=== PATIENT | female | born 1985 | race Caucasian/White ===

== ENCOUNTER 2019-04-18 09:54 | Outpatient (CLI) | payer MEDICAID, SELFPAY ==
--- NOTE | 2019-04-18 11:28 | US_ITS ---
WS: [id number] ULTRASOUND BREAST RIGHT TECHNIQUE: Ultrasound right breast focused area of concern. CLINICAL INFORMATION: LUMP IN RIGHT BREAST COMPARISON: None. FINDINGS: Ultrasound right breast at the 2 to 3:00 position 6 cm from the nipple in the area of concern. Normal underlying breast tissue. No cystic or solid mass. No lesions to target for biopsy. US/US breast RT limited* [id number] IMPRESSION: BI-RADS 2 benign FOLLOW UP: Annual screening mammography age 40 Additional management of the palpable abnormality should be based on clinical g rounds.
== END 2019-04-18 09:55 | disposition home or self-care (01) ==
LOC: RAD 10:01
PROVIDERS: Family Provider Nurse Practitioner Family; Visit Provider Obstetrics & Gynecology
DX: N63.15 Unspecified lump in the right breast, overlapping quadrants (principal)
CPT/HCPCS: 76642

== ENCOUNTER → 2019-05-10 10:44 | Outpatient (BNVA) | payer MEDICAID, SELFPAY | PROVIDERS: Family Provider Nurse Practitioner Family; PCP Family Medicine; Visit Provider Counselor Professional | DX: F60.3 Borderline personality disorder (principal); F10.20 Alcohol dependence, uncomplicated; F33.1 Major depressive disorder, recurrent, moderate | CPT/HCPCS: 90834 ==

== ENCOUNTER → 2019-06-07 10:07 | Outpatient (BNVA) | payer MEDICAID, SELFPAY | PROVIDERS: Family Provider Nurse Practitioner Family; PCP Family Medicine; Visit Provider Counselor Professional | DX: F60.3 Borderline personality disorder (principal) | CPT/HCPCS: 90832 ==

== ENCOUNTER → 2019-06-21 10:18 | Outpatient (BNVA) | payer MEDICAID, SELFPAY | PROVIDERS: Family Provider Nurse Practitioner Family; PCP Family Medicine; Visit Provider Counselor Professional | DX: F60.3 Borderline personality disorder (principal) | CPT/HCPCS: 90834 ==

== ENCOUNTER → 2019-07-07 08:29 | Outpatient (BNVA) | payer MEDICAID, SELFPAY | PROVIDERS: Family Provider Nurse Practitioner Family; PCP Family Medicine; Visit Provider Psychiatry & Neurology Psychiatry | DX: F33.41 Major depressive disorder, recurrent, in partial remission (principal); F06.30 Mood disorder due to known physiological condition, unspecified; E55.9 Vitamin D deficiency, unspecified; E66.9 Obesity, unspecified; F51.05 Insomnia due to other mental disorder; Z86.59 Personal history of other mental and behavioral disorders; E53.9 Vitamin B deficiency, unspecified; E53.8 Deficiency of other specified B group vitamins; E60 Dietary zinc deficiency; E63.0 Essential fatty acid [EFA] deficiency | CPT/HCPCS: 99205 ==

== ENCOUNTER → 2019-07-12 08:03 | Outpatient (BNVA) | payer MEDICAID, SELFPAY | PROVIDERS: Family Provider Nurse Practitioner Family; PCP Family Medicine; Visit Provider Counselor Professional | DX: F60.3 Borderline personality disorder (principal) | CPT/HCPCS: 90834 ==

== ENCOUNTER → 2019-08-31 08:14 | Outpatient (BNVA) | payer MEDICAID, SELFPAY | PROVIDERS: Family Provider Nurse Practitioner Family; Visit Provider Counselor Professional | DX: F60.3 Borderline personality disorder (principal); F15.20 Other stimulant dependence, uncomplicated; F10.20 Alcohol dependence, uncomplicated; F12.20 Cannabis dependence, uncomplicated; Z70.8 Other sex counseling | CPT/HCPCS: 90834 ==

== ENCOUNTER → 2019-09-06 07:53 | Outpatient (BNVA) | payer MEDICAID, SELFPAY | PROVIDERS: Family Provider Nurse Practitioner Family; Visit Provider Counselor Professional | DX: F60.3 Borderline personality disorder (principal); F15.20 Other stimulant dependence, uncomplicated | CPT/HCPCS: 90834 ==

== ENCOUNTER → 2019-12-19 14:21 | Outpatient (BNVA) | payer MEDICAID, SELFPAY | PROVIDERS: Family Provider Nurse Practitioner Family; Visit Provider Psychiatry & Neurology Psychiatry | DX: F33.41 Major depressive disorder, recurrent, in partial remission (principal); F15.10 Other stimulant abuse, uncomplicated; Z65.3 Problems related to other legal circumstances | CPT/HCPCS: 99214 ==

== ENCOUNTER → 2020-01-19 12:57 | Outpatient (BNVA) | payer MEDICAID, SELFPAY | PROVIDERS: Family Provider Nurse Practitioner Family; Visit Provider Psychiatry & Neurology Psychiatry | DX: F33.41 Major depressive disorder, recurrent, in partial remission (principal); F15.10 Other stimulant abuse, uncomplicated; Z65.3 Problems related to other legal circumstances | CPT/HCPCS: 99214 ==

== ENCOUNTER → 2020-05-22 15:01 | Outpatient (BNVA) | payer MEDICAID, SELFPAY | PROVIDERS: Family Provider Nurse Practitioner Family; PCP Physician Assistant; Visit Provider Specialist | DX: G56.03 Carpal tunnel syndrome, bilateral upper limbs (principal); R20.0 Anesthesia of skin; R20.2 Paresthesia of skin; F17.210 Nicotine dependence, cigarettes, uncomplicated | CPT/HCPCS: 95910 ==

== ENCOUNTER 2021-04-07 08:37 | Emergency (ER) | payer MEDICAID, SELFPAY ==
--- NOTE | 2021-04-07 09:07 | W.ED.ABDPA2 ---
Documented by User: KENNEDI Carreon 04/07/21 09:08 HPI - Abdominal Pain General: Chief Complaint: Nausea/Vomiting/Diarrhea Stated Complaint: FEVER, N/V Time Seen by Provider: 04/07/21 09:47 History of Present Illness: HPI narrative: Patient states she has had abdominal pain for last couple days and now is becoming unbearable. She says he hurts in the low back both kidney areas patient says she is not urinating well. Said she has had some nausea and vomiting. She said pain radiates out across her abdomen. States she felt like she is been have a. Again with pressure but she has had a complete hysterectomy. Patient denies vaginal discharge. [facility] ED PFSH: Medical History (Updated 04/07/21 @ 12:24 by Toan Zuniga DO) Alcohol use disorder History of persistent depressive disorder Insomnia disorder, with non-sleep disorder mental comorbidity, recurrent Lost custody of children MDD (major depressive disorder), recurrent, in partial remission Methamphetamine use disorder, mild Obesity (BMI 30-39.9) Psychiatric care Surgical History (Updated 04/07/21 @ 13:31 by Toan Zuniga DO) History of hysterectomy Hx of cholecystectomy Social History Smoking and tobacco status: current some day smoker Course Vital Signs: Vital signs: Vital Signs Temperature 98.4 F 04/07/21 09:23 Pulse Rate 103 H 04/07/21 12:29 Respiratory Rate 24 H 04/07/21 12:29 Blood Pressure 146/90 04/07/21 12:29 Pulse Oximetry 98 04/07/21 12:29 MDM - Abdominal Pain Lab Data: Labs: Lab Results 04/07/21 04/07/21 04/07/21 09:45 10:10 10:10 WBC Cancelled Corrected WBC Cancelled RBC Cancelled Hgb Cancelled Hct Cancelled MCV Cancelled MCH Cancelled MCHC Cancelled RDW Cancelled Plt Count Cancelled MPV Cancelled Gran % Cancelled Neut % (Auto) Cancelled Lymph % (Auto) Cancelled [place] % (Auto) Cancelled Eos % (Auto) Cancelled Baso % (Auto) Cancelled Neut # (Auto) Cancelled Lymph # (Auto) Cancelled [place] # (Auto) Cancelled Eos # (Auto) Cancelled Baso # (Auto) Cancelled Absolute Gran (aut o) Cancelled Nucleated RBC % (a uto) Cancelled Nucleated RBCs # Cancelled Sodium 135 mmol/L L mmol /L (136-145) Potassium 4.0 mmol/L mmol/L (3.5-5.1) Chloride 101 mmol/L mmol/L (98-107) Carbon Dioxide 14 mmol/L L mmol/ L (22-29) Anion Gap 24.0 H (5-19) BUN 8 mg/dL mg/dL (6-20) Creatinine 0.5 mg/dL mg/dL (0.5-0.9) GFR Calculation 140.4 mL/min H mL /min (90-130) Glucose 179 mg/dL H mg/dL (65-115) Calculated Osmolal ity 283 mOsm/kg L mOs m/kg (285-295) Calcium 9.3 mg/dL mg/dL (8.5-10.5) Total Bilirubin 2.3 mg/dL H mg/dL (0.15-1.2) AST 21 U/L U/L (0-32) ALT 20 U/L U/L (0-33) Alkaline Phosphata se 79 IU/L IU/L (35-105) Total Protein 7.5 g/dL g/dL (6.6-8.7) Albumin 4.1 g/dL g/dL (3.5-5.2) Globulin 3.4 g/dL g/dL (1.3-4.6) Lipase 11 U/L L U/L (13-60) Urine Color Shirley (Yellow) Urine Appearance Clear (CLEAR) Urine pH 6 (5-7) Ur Specific Gravit y 1.020 (1.005-1.030) Urine Protein 1+ H (Negative) Urine Glucose (UA) 4+ H (Normal) Urine Ketones 3+ H (Negative) Urine Blood 2+ H (Negative) Urine Nitrate Negative (Negative) Urine Bilirubin 1+ H (Negative) Urine Urobilinogen 1 mg/dL H mg/dL (Negative) Ur Leukocyte Joyce ase Trace H (Negative) Urine RBC 0-4 /hpf H /hpf (0-2) Urine WBC 0-4 /hpf H /hpf (0-5) Ur Squamous Epith Cells 5-10 /hpf H /hpf (0-5) Amorphous Sediment Not Reportable Urine Bacteria 1+ /hpf H /hpf (NONE) Urine Mucus 2+ /hpf /hpf 04/07/21 10:51 WBC 13.8 10^3/uL H 10 ^3/uL (4.0-10.0) Corrected WBC RBC 4.87 10^6/uL 10^6 /uL (4.1-5.3) Hgb 13.8 g/dL g/dL (11.5-15.3) Hct 42.0 % % (37.0-47.0) MCV 86.2 fl fl (81-99) MCH 28.3 pg pg (28.0-34.0) MCHC 32.9 g/dL g/dL (30.0-36.0) RDW 13.2 % % (12.1-15.1) Plt Count 203 10^3/cmm 10^3 /cmm (130-400) MPV 10.5 fL H fL (7.4-10.4) Gran % Neut % (Auto) 90.9 % % Lymph % (Auto) 4.8 % % [place] % (Auto) 3.6 % % Eos % (Auto) 0.0 % % Baso % (Auto) 0.1 % % Neut # (Auto) 12.54 10^3/uL H 1 0^3/uL (1.8-7.7) Lymph # (Auto) 0.7 10^3/uL L 10^ 3/uL (0.8-4.8) [place] # (Auto) 0.5 10^3/uL 10^3/ uL (0.2-0.9) Eos # (Auto) 0.0 10^3/uL 10^3/ uL (0.0-0.8) Baso # (Auto) 0.0 10^3/uL 10^3/ uL (0.0-0.1) Absolute Gran (aut o) Nucleated RBC % (a uto) 0 % % Nucleated RBCs # 0.0 /100WBC /100W BC Sodium Potassium Chloride Carbon Dioxide Anion Gap BUN Creatinine GFR Calculation Glucose Calculated Osmolal ity Calcium Total Bilirubin AST ALT Alkaline Phosphata se Total Protein Albumin Globulin Lipase Urine Color Urine Appearance Urine pH Ur Specific Gravit y Urine Protein Urine Glucose (UA) Urine Ketones Urine Blood Urine Nitrate Urine Bilirubin Urine Urobilinogen Ur Leukocyte Joyce ase Urine RBC Urine WBC Ur Squamous Epith Cells Amorphous Sediment Urine Bacteria Urine Mucus Discharge Plan Discharge Patient Disposition: Home Clinical Impression: Diverticulitis, Gilbert's disease Condition: Stable Prescriptions: New Cipro 500 mg tablet 500 mg PO BID Qty: 14 RF: 0 Flagyl 500 mg tablet 500 mg PO BID 7 Days Qty: 14 RF: 0 hydrocodone-acetaminophen 5-325 mg tablet 1 tab PO Q6H PRN (Reason: pain) Qty: 15 RF: 0 Zofran 4 mg tablet 4 mg PO Q6H PRN (Reason: nausea and vomiting) Qty: 20 RF: 0 No Action Excedrin Migraine 250-250-65 mg tablet 2 tab PO Q6H PRNRF: 0 naproxen 500 mg tablet 500 mg PO BID PRNRF: 0 levomefolate-algal oil [L-Methylfolate Forte] 15-90.314 mg capsule 1 cap PO DAILY Qty: 30 RF: 1 ergocalciferol (vitamin D2) [Drisdol] 1,250 mcg (50,000 unit) capsule 1,250 mcg PO DAILY Qty: 30 RF: 0 ergocalciferol (vitamin D2) [Drisdol] 1,250 mcg (50,000 unit) capsule 1,250 mcg PO .biweekly Qty: 10 RF: 1 bupropion HCl 150 mg tablet extended release 24 hr 150 mg PO QAM 30 Days Qty: 30 RF: 3 Discharge Orders: Discharge ED (Routine); Ordered 04/07/21 Ordered By: Toan Zuniga Referrals: Ronda Sparks PA [Primary Care Provider] - Discharge Diet: Clear Liquid Discharge Activity: Resume usual activity Patient Instructions: Diverticulitis (ED), Opioid Safety Activity Restrictions/Additional Instructions: Follow-up with your primary care doctor if not improving within the next week. Stand Alone Forms: Work/School Release Coding Level of Care Code ED Production Planning Manager for Chg Fwd Exam Comprehensive Documented by User: Toan Zuniga DO 04/07/21 13:31 HPI - Abdominal Pain General: Chief Complaint: Nausea/Vomiting/Diarrhea Stated Complaint: FEVER, N/V Time Seen by Provider: 04/07/21 09:47 History of Present Illness: HPI narrative: 35-year-old female who presents emergency room complaining of flulike symptoms for the last 3 days. Generalized myalgias with a lot of nausea and vomiting abdominal cramping states she feels like it is menstrual cramping. She did have a hysterectomy several years ago due to metromenorrhagia in the same setting she states that she had a cholecystectomy. MD elicited complaint: abdominal pain Onset (ago): day(s) (3) Pain Consistency: constant Location: Pelvis Severity: moderate Quality: cramping Radiation: none Migration to: no migration Exacerbating factors: movement and other (Exam) Relieving factors: rest Associated Symptoms: Denies anorexia, belching, bloating, change in bowel habits, change in stool character, chills, coffee ground emesis, constipation, GI cramping, diarrhea, dyspepsia, dysuria, excessive flatus, fever(s), heartburn, hematochezia, hematuria, hematemesis, fecal incontinence, loose stools, melena, nausea, poor appetite, syncope and vomiting Review of Systems Const: Denies: fever(s) or chills ENMT: Denies: throat pain, ear or mastoid pain, nasal discharge or nasal congestion Card: Denies: syncope Resp: Denies: dyspnea, productive cough or non-productive cough GI: Denies: nausea, vomiting, hematemesis, coffee ground emesis, heartburn, diarrhea, constipation, bloating, GI cramping, belching, excessive flatus, fecal incontinence, change in bowel habits, change in stool character, hematochezia or melena : Denies: dysuria or hematuria Skin/Breast: Denies: rash or pruritus PFSH ED PFSH: Medical History (Updated 04/07/21 @ 12:24 by Toan Zuniga DO) Alcohol use disorder History of persistent depressive disorder Insomnia disorder, with non-sleep disorder mental comorbidity, recurrent Lost custody of children MDD (major depressive disorder), recurrent, in partial remission Methamphetamine use disorder, mild Obesity (BMI 30-39.9) Psychiatric care Surgical History (Updated 04/07/21 @ 13:31 by Toan Zuniga DO) History of hysterectomy Hx of cholecystectomy Social History Smoking and tobacco status: current some day smoker Physical Exam Const: COMMON NORMALS: no acute distress GENERAL APPEARANCE: cooperative and comfortable ORIENTATION/CONSCIOUSNESS: Yes awake, Yes oriented to person, Yes oriented to place and Yes oriented to time HENMT: COMMON NORMALS: normocephalic, atraumatic and hearing grossly normal bilaterally HEAD & SCALP: normocephalic and atraumatic Neck/C-Spine: COMMON NORMALS: no JVD Resp: COMMON NORMALS: normal respiratory effort, No retractions, No use of accessory muscles and clear to auscultation bilaterally AUSCULTATION: clear to auscultation bilaterally Cardio: COMMON NORMALS: no JVD, regular rate, regular rhythm and No murmurs present (Cardio) RATE: regular rate RHYTHM: regular rhythm GI: AUSCULTATION: Yes Hypoactive bowel sounds present PALPATION: Yes Tenderness to palpation present (GI) (Diffuse) and No Guarding due to palpation present (GI) Extremity: COMMON NORMALS: normal to inspection, capillary refill normal, no clubbing, cyanosis or edema, no calf tenderness and no pedal edema Neuro: SENSORIUM/ORIENTATION: Yes oriented to person, Yes oriented to place and Yes oriented to time Skin: COMMON NORMALS: no rashes or lesions noted GENERAL SKIN EXAM: no rashes or lesions noted Course Vital Signs: Vital signs: Vital Signs Temperature 98.4 F 04/07/21 09:23 Pulse Rate 103 H 04/07/21 12:29 Respiratory Rate 24 H 04/07/21 12:29 Blood Pressure 146/90 04/07/21 12:29 Pulse Oximetry 98 04/07/21 12:29 MDM - Abdominal Pain MDM Narrative: Medical decision making narrative: CT and labs reviewed. Patient has acute diverticulitis colitis. Discussed with the radiologist does not appear to be acute appendicitis. Patient will be started on Cipro and Flagyl hydrocodone and Zofran as needed clear liquid diet for 24 to 48 hours and advance as tolerated follow-up with primary care return if not improving. Also a secondary note patient's T bili is elevated at 2.3 with normal liver enzymes suspect she has an underlying Guilbert disease she previously has had a cholecystectomy. Lab Data: Labs: Lab Results 04/07/21 04/07/21 04/07/21 09:45 10:10 10:10 WBC Cancelled Corrected WBC Cancelled RBC Cancelled Hgb Cancelled Hct Cancelled MCV Cancelled MCH Cancelled MCHC Cancelled RDW Cancelled Plt Count Cancelled MPV Cancelled Gran % Cancelled Neut % (Auto) Cancelled Lymph % (Auto) Cancelled [place] % (Auto) Cancelled Eos % (Auto) Cancelled Baso % (Auto) Cancelled Neut # (Auto) Cancelled Lymph # (Auto) Cancelled [place] # (Auto) Cancelled Eos # (Auto) Cancelled Baso # (Auto) Cancelled Absolute Gran (aut o) Cancelled Nucleated RBC % (a uto) Cancelled Nucleated RBCs # Cancelled Sodium 135 mmol/L L mmol /L (136-145) Potassium 4.0 mmol/L mmol/L (3.5-5.1) Chloride 101 mmol/L mmol/L (98-107) Carbon Dioxide 14 mmol/L L mmol/ L (22-29) Anion Gap 24.0 H (5-19) BUN 8 mg/dL mg/dL (6-20) Creatinine 0.5 mg/dL mg/dL (0.5-0.9) GFR Calculation 140.4 mL/min H mL /min (90-130) Glucose 179 mg/dL H mg/dL (65-115) Calculated Osmolal ity 283 mOsm/kg L mOs m/kg (285-295) Calcium 9.3 mg/dL mg/dL (8.5-10.5) Total Bilirubin 2.3 mg/dL H mg/dL (0.15-1.2) AST 21 U/L U/L (0-32) ALT 20 U/L U/L (0-33) Alkaline Phosphata se 79 IU/L IU/L (35-105) Total Protein 7.5 g/dL g/dL (6.6-8.7) Albumin 4.1 g/dL g/dL (3.5-5.2) Globulin 3.4 g/dL g/dL (1.3-4.6) Lipase 11 U/L L U/L (13-60) Urine Color Shirley (Yellow) Urine Appearance Clear (CLEAR) Urine pH 6 (5-7) Ur Specific Gravit y 1.020 (1.005-1.030) Urine Protein 1+ H (Negative) Urine Glucose (UA) 4+ H (Normal) Urine Ketones 3+ H (Negative) Urine Blood 2+ H (Negative) Urine Nitrate Negative (Negative) Urine Bilirubin 1+ H (Negative) Urine Urobilinogen 1 mg/dL H mg/dL (Negative) Ur Leukocyte Joyce ase Trace H (Negative) Urine RBC 0-4 /hpf H /hpf (0-2) Urine WBC 0-4 /hpf H /hpf (0-5) Ur Squamous Epith Cells 5-10 /hpf H /hpf (0-5) Amorphous Sediment Not Reportable Urine Bacteria 1+ /hpf H /hpf (NONE) Urine Mucus 2+ /hpf /hpf 04/07/21 10:51 WBC 13.8 10^3/uL H 10 ^3/uL (4.0-10.0) Corrected WBC RBC 4.87 10^6/uL 10^6 /uL (4.1-5.3) Hgb 13.8 g/dL g/dL (11.5-15.3) Hct 42.0 % % (37.0-47.0) MCV 86.2 fl fl (81-99) MCH 28.3 pg pg (28.0-34.0) MCHC 32.9 g/dL g/dL (30.0-36.0) RDW 13.2 % % (12.1-15.1) Plt Count 203 10^3/cmm 10^3 /cmm (130-400) MPV 10.5 fL H fL (7.4-10.4) Gran % Neut % (Auto) 90.9 % % Lymph % (Auto) 4.8 % % [place] % (Auto) 3.6 % % Eos % (Auto) 0.0 % % Baso % (Auto) 0.1 % % Neut # (Auto) 12.54 10^3/uL H 1 0^3/uL (1.8-7.7) Lymph # (Auto) 0.7 10^3/uL L 10^ 3/uL (0.8-4.8) [place] # (Auto) 0.5 10^3/uL 10^3/ uL (0.2-0.9) Eos # (Auto) 0.0 10^3/uL 10^3/ uL (0.0-0.8) Baso # (Auto) 0.0 10^3/uL 10^3/ uL (0.0-0.1) Absolute Gran (aut o) Nucleated RBC % (a uto) 0 % % Nucleated RBCs # 0.0 /100WBC /100W BC Sodium Potassium Chloride Carbon Dioxide Anion Gap BUN Creatinine GFR Calculation Glucose Calculated Osmolal ity Calcium Total Bilirubin AST ALT Alkaline Phosphata se Total Protein Albumin Globulin Lipase Urine Color Urine Appearance Urine pH Ur Specific Gravit y Urine Protein Urine Glucose (UA) Urine Ketones Urine Blood Urine Nitrate Urine Bilirubin Urine Urobilinogen Ur Leukocyte Joyce ase Urine RBC Urine WBC Ur Squamous Epith Cells Amorphous Sediment Urine Bacteria Urine Mucus Discharge Plan Discharge Patient Disposition: Home Clinical Impression: Diverticulitis, Gilbert's disease Condition: Stable Prescriptions: New Cipro 500 mg tablet 500 mg PO BID Qty: 14 RF: 0 Flagyl 500 mg tablet 500 mg PO BID 7 Days Qty: 14 RF: 0 hydrocodone-acetaminophen 5-325 mg tablet 1 tab PO Q6H PRN (Reason: pain) Qty: 15 RF: 0 Zofran 4 mg tablet 4 mg PO Q6H PRN (Reason: nausea and vomiting) Qty: 20 RF: 0 No Action Excedrin Migraine 250-250-65 mg tablet 2 tab PO Q6H PRNRF: 0 naproxen 500 mg tablet 500 mg PO BID PRNRF: 0 levomefolate-algal oil [L-Methylfolate Forte] 15-90.314 mg capsule 1 cap PO DAILY Qty: 30 RF: 1 ergocalciferol (vitamin D2) [Drisdol] 1,250 mcg (50,000 unit) capsule 1,250 mcg PO DAILY Qty: 30 RF: 0 ergocalciferol (vitamin D2) [Drisdol] 1,250 mcg (50,000 unit) capsule 1,250 mcg PO .biweekly Qty: 10 RF: 1 bupropion HCl 150 mg tablet extended release 24 hr 150 mg PO QAM 30 Days Qty: 30 RF: 3 Discharge Orders: Discharge ED (Routine); Ordered 04/07/21 Ordered By: Toan Zuniga Referrals: Ronda Sparks PA [Primary Care Provider] - Discharge Diet: Clear Liquid Discharge Activity: Resume usual activity Patient Instructions: Diverticulitis (ED), Opioid Safety Activity Restrictions/Additional Instructions: Follow-up with your primary care doctor if not improving within the next week. Stand Alone Forms: Work/School Release Coding Level of Care Code ED Production Planning Manager for Shahriar Fwd Exam Comprehensive
[2021-04-07 09:23] VITALS: BP 142/58; PULSE 100; RESP 18; TEMP 36.9; O2SAT 97; BMI 36.1
--- NOTE | 2021-04-07 09:55 | CT_ITS ---
WS: [id number] CT ABDOMEN AND PELVIS WITH CONTRAST HISTORY: Lower abdominal pain for 4 days, fever and vomiting. TECHNIQUE: Imaging performed of the abdomen and pelvis with IV contrast. Single phase imaging of the abdomen. Coronal and sagittal reformats are submitted. All CT scans at [facility] use at [address] one of these dose optimization techniques: automated exposure control; mA and/or kV adjustment per patient size (includes targeted exams where dose is matched to clinical indication); or iterative re construction. IV CONTRAST: Omnipaque 300; 95 mL IV. Oral contrast: No DLP: 1773.15 mGy.cm COMPARISON: None available. Lower thorax: Lung bases are clear. Heart is normal size. No hiatal hernia. Liver/biliary system: Normal size with no intrahepatic dilatation. Gallbladder: Status post cholecystectomy. Pancreas: Normal size pancreas and pancreatic duct. No adjacent inflammation. Spleen: Normal size spleen. No mass or infarct. Adrenal glands: Normal. Right kidney: Normal. Left kidney: Normal. Aorta: Normal. Lymphadenopathy: None. Free fluid: There is a small amount of complex free fluid in the pelvis. More fluid than physiologic. GI tract: The appendix is identified and extends across the midline of the pelvis. There are mild adj acent inflammatory changes which are secondary to acute diverticulitis involving the sigmoid colon. A ppendicolith within the distal appendix. There is a small amount of increased fluid in the cecum. Num erous diverticula are present throughout the colon. In the sigmoid colon there is marked wall thicken ing with numerous diverticula. Adjacent stranding in the fat with numerous diverticula. Abdominal wall: Unremarkable abdominal wall. No hernia. Pelvis: Free fluid in the pelvis is of increased density and there is some very mild scattered enhanc ement. Within the free fluid in the LEFT adnexa irregular shaped peripherally enhancing nodule. Simil ar findings to lesser extent in the RIGHT adnexa. Both of these peripherally enhancing nodules are cl osely associated with the ovaries. Bones: Unremarkable. CT/CT abdomen pelvis w con* [id number] IMPRESSION: 1. Moderate changes of acute sigmoid diverticulitis. Significant colonic wall thickening with edema. 2. Mildly complex free fluid in the pelvis. At this time there is no well form ed abscess. There are a few areas of mild peripheral enhancement within each ad nexa surrounded by fluid. Early developing abscess versus collapsing corpus lut eal cysts. 3. Mild periappendiceal inflammation secondary to the sigmoid diverticulitis. The appendix does extend across the midline and is closely associated with the inflammation from the acute sigmoid diverticulitis. 4. Prior cholecystectomy.
[2021-04-07 10:00] VITALS: RESP 18; O2SAT 99
[2021-04-07] MEDS: morphine 4 mg/mL SDV 1 mL IVP (10:00)
[2021-04-07] MEDS: ondansetron 2 mg/ML SDV 2 mL 4 MG IVP (10:01)
[2021-04-07] MEDS: sodium chloride 0.9% 1,000 ML 999 ML IV ×2 (10:01→11:47)
[2021-04-07] MEDS: iohexol 300 mg/mL 100 mL Btl IV (10:30)
[2021-04-07 10:37] LABS: Urine Appearance Clear (CLEAR); Urine Color Orange (Yellow); pH Urine 6 (5-7)
[2021-04-07 10:38] LABS: Add Urine Culture? No; Add Urine Microscopic? YES; Bacteria Urine 1+ /hpf; Bilirubin Urine 1+ (Negative); Blood Urine 2+ (Negative); Glucose Urine UA 4+ (Normal); Ketones Urine 3+ (Negative); Leukocyte Esterase Urine Trace (Negative); Mucus Urine 2+ /hpf; Nitrate Urine Negative (Negative); Protein Urine 1+ (Negative); RBC Urine 0-4 /hpf (0-2); Urobilinogen Urine 1 mg/dL (Negative); WBC Urine 0-4 /hpf (0-5)
[2021-04-07 10:46] LABS: Alanine Aminotransferase 20 U/L (0-33); Albumin Level 4.1 g/dL (3.5-5.2); Alkaline Phosphatase 79 IU/L (35-105); Aspartate Amino Transferase 21 U/L (0-32); Blood Urea Nitrogen 8 mg/dL (6-20); Calcium 9.3 mg/dL (8.5-10.5); Carbon Dioxide 14 mmol/L (22-29); Chloride 101 mmol/L (98-107); Globulin 3.4 g/dL (1.3-4.6); Glomerular Filtration Rate 140.4 mL/min (90-130); Glucose 179 mg/dL (65-115); Lipase 11 U/L (13-60); Osmolality Calculated 283 mOsm/kg (285-295); Sodium 135 mmol/L (136-145); Total Bilirubin 2.3 mg/dL (0.15-1.2); Total Protein 7.5 g/dL (6.6-8.7)
[2021-04-07 11:00] LABS: Basophils % 0.1 %; Hemoglobin 13.8 g/dL (11.5-15.3); Lymphocytes # 0.7 10^3/uL (0.8-4.8); Lymphocytes % 4.8 %; Mean Corpuscular HGB Conc 32.9 g/dL (30.0-36.0); Mean Corpuscular Hemoglobin 28.3 pg (28.0-34.0); Mean Corpuscular Volume 86.2 fl (81-99); Mean Platelet Volume 10.5 fL (7.4-10.4); Monocytes # 0.5 10^3/uL (0.2-0.9); Monocytes % 3.6 %; Neutrophils # 12.54 10^3/uL (1.8-7.7); Neutrophils % 90.9 %; Nucleated Red Blood Cells % 0 %; Platelet Count 203 10^3/cmm (130-400); Red Blood Count 4.87 10^6/uL (4.1-5.3); Red Cell Distribution Width 13.2 % (12.1-15.1); White Blood Count 13.8 10^3/uL (4.0-10.0)
[2021-04-07 12:29] VITALS: BP 146/90; PULSE 103; RESP 24; O2SAT 98
--- NOTE | 2021-04-07 12:54 | PC.NURSE ---
PATIENT DISCHARGED BY OTHER STAFF
== END 2021-04-07 12:43 | disposition home or self-care (01) ==
PROVIDERS: Nurse Practitioner Family; Emergency Provider Family Medicine; PCP Physician Assistant
DX: K57.92 Diverticulitis of intestine, part unspecified, without perforation or abscess without bleeding (principal); E80.4 Gilbert syndrome; F17.210 Nicotine dependence, cigarettes, uncomplicated
CPT/HCPCS: 36415; 74177; 80053; 81001; 83690; 85025; 96361; 96374; 96375; 99284; J2270; J2405; J7030; Q9967

== ENCOUNTER 2021-04-25 10:34 | Inpatient (IN) | payer MEDICAID, SELFPAY ==
[2021-04-25] VITALS (14 sets, daily range): BP systolic 144–175; BP diastolic 93–115; PULSE 77–123; RESP 16–31; TEMP 36.3–37.7; O2SAT 94–98; BMI 35.8
[2021-04-25 11:41] LABS: Basophils # 0.1 10^3/uL (0.0-0.1); Basophils % 0.3 %; Eosinophils % 0.2 %; Hematocrit 52.6 % (37.0-47.0); Hemoglobin 16.7 g/dL (11.5-15.3); Lymphocytes # 1.6 10^3/uL (0.8-4.8); Lymphocytes % 7.8 %; Mean Corpuscular HGB Conc 31.7 g/dL (30.0-36.0); Mean Corpuscular Hemoglobin 27.6 pg (28.0-34.0); Mean Corpuscular Volume 87.1 fl (81-99); Mean Platelet Volume 10.4 fL (7.4-10.4); Monocytes # 0.4 10^3/uL (0.2-0.9); Monocytes % 1.9 %; Neutrophils # 17.82 10^3/uL (1.8-7.7); Neutrophils % 89.4 %; Nucleated Red Blood Cells % 0 %; Platelet Count 501 10^3/cmm (130-400); Red Blood Count 6.04 10^6/uL (4.1-5.3); Red Cell Distribution Width 13.5 % (12.1-15.1); White Blood Count 19.9 10^3/uL (4.0-10.0)
--- NOTE | 2021-04-25 11:47 | CT_ITS ---
WS: [id number] CT ABDOMEN AND PELVIS WITH CONTRAST HISTORY: RLQ pain, leukocytosis TECHNIQUE: Imaging performed of the abdomen and pelvis with IV contrast. Single phase imaging of the abdomen. Coronal and sagittal reformats are submitted. All CT scans at [facility] use at [address] one of these dose optimization techniques: automated exposure control; mA and/or kV adjustment per patient size (includes targeted exams where dose is matched to clinical indication); or iterative re construction. IV CONTRAST: Omnipaque 300; 95 mL IV. Oral contrast: No DLP: 1696.54 mGy.cm COMPARISON: 04/07/2021 Lower thorax: Lung bases are clear. Heart is normal size. Small hiatal hernia. Liver/biliary system: Normal size liver. There is a tiny amount of free air along the anterior surfac e of the liver. There is also very small amount perihepatic fluid. Gallbladder: Status post cholecystectomy. Pancreas: Normal size pancreas and pancreatic duct. No adjacent inflammation. Spleen: Normal size spleen. No mass or infarct. Adrenal glands: Normal. Right kidney: Normal. Left kidney: Normal. Aorta: Normal. Lymphadenopathy: None. Free fluid: Free fluid in the pelvis. Fluid is of increased density suggesting blood or infection. Th ere is extensive edema and stranding throughout the peritoneal cavity. Most significant changes withi n the peritoneum involve the mesenteric fat on the RIGHT. There is a small amount of fluid along the paracolic gutters. There are several abscess cavities in the pelvis. The largest measures 2.0 x 4.3 c m in the RIGHT lower quadrant. There is an interloop abscess more anterior in the pelvis measuring 1. 9 x 1.7 cm. Additional small inflammatory collections are scattered throughout the pelvis. There are numerous tiny foci of free air external to the lumen of the small bowel. GI tract: Dilated small bowel loops are fluid-filled. In the pelvis there is a tethering of the small bowel loops with a moderate amount of edema and numerous tiny foci of free air. The appendix by hist ory was recently removed. Abdominal wall: Unremarkable abdominal wall. No hernia. Pelvis: Marked inflammatory changes throughout the pelvis. There is inflammation surrounding the ovar ies and the distal small bowel. Bones: Unremarkable. CT/CT abdomen pelvis w con* [id number] IMPRESSION: 1. Significant acute inflammatory process centered within the pelvis. Multiple abscess cavities in the pelvis. The largest abscess in the RIGHT lower quadran t measures 2.0 x 4.3 cm. There is an interloop abscess anteriorly. Additional s maller abscesses in the RIGHT lower quadrant. 2. Numerous foci of free air cannot be placed within the lumen suggesting inte stinal perforation. 3. New complex free fluid in the pelvis is probably from infection or bleeding . 4. Small bowel fluid distention from an ileus. 5. Small amount of perihepatic fluid. 6. Prior cholecystectomy. 7. The appendix is not identified and by history was removed on 04/07/2021. Notified Mimi Banda PA-C at 04/25/2021 2:06 PM.
[2021-04-25 11:50] LABS: Alanine Aminotransferase 14 U/L (0-33); Albumin Level 4.2 g/dL (3.5-5.2); Alkaline Phosphatase 67 IU/L (35-105); Aspartate Amino Transferase 16 U/L (0-32); Blood Urea Nitrogen 12 mg/dL (6-20); Calcium 9.6 mg/dL (8.5-10.5); Carbon Dioxide 15 mmol/L (22-29); Chloride 107 mmol/L (98-107); Globulin 3.5 g/dL (1.3-4.6); Glomerular Filtration Rate 113.8 mL/min (90-130); Glucose 189 mg/dL (65-115); Lipase 28 U/L (13-60); Osmolality Calculated 291 mOsm/kg (285-295); Sodium 138 mmol/L (136-145); Total Bilirubin 0.7 mg/dL (0.15-1.2); Total Protein 7.7 g/dL (6.6-8.7)
[2021-04-25] MEDS: ondansetron 2 mg/ML SDV 2 mL 4 MG IVP ×2 (12:40→21:05)
--- NOTE | 2021-04-25 12:57 | ED_ITS ---
HPI - Abdominal Pain General: Chief Complaint: Abdominal Pain Stated Complaint: Vomiting, severe abd pain Time Seen by Provider: 04/25/21 12:55 History of Present Illness: Ms. Bowling is a 35-year-old lady with history of abdominal surgeries including cholecystectomy and hysterectomy presenting to the emergency department due to abdominal pain with nausea and vomiting. She was seen approximately 2 weeks ago and diagnosed with diverticulitis however reports that the symptoms improved with antibiotics and she has had essentially 1 week of no symptoms. She was at her baseline health yesterday and worked last night. She has had a normal bowel movement earlier this morning and then subsequently has developed right-sided lower quadrant abdominal pain. This is associated with generalized malaise and nausea and vomiting. Sharp pain is severe in intensity and worse with palpation and movement. Denies similar episodes in past. No other recent change in health, exacerbating, relieving factors identified. Pertinent past history: diverticulitis Onset (ago): hour(s) Pain Consistency: constant Location: RLQ Severity: severe Quality: sharp Radiation: none Exacerbating factors: movement Relieving factors: nothing Treatments prior to arrival: prescription analgesics and other (Zofran) Review of Systems General: Reports: 10 or more systems reviewed and unremarkable except in HPI and below PFSH ED PFSH: Medical History Alcohol use disorder History of persistent depressive disorder Insomnia disorder, with non-sleep disorder mental comorbidity, recurrent MDD (major depressive disorder), recurrent, in partial remission Methamphetamine use disorder, mild Surgical History H/O tubal ligation History of hysterectomy Hx of cholecystectomy S/P tonsillectomy and adenoidectomy Social History Smoking and tobacco status: current some day smoker Physical Exam Const: COMMON NORMALS: alert GENERAL APPEARANCE: cooperative, well developed, in distress (Secondary to pain) and ill appearing (Mildly) HENMT: COMMON NORMALS: normocephalic and atraumatic HEAD & SCALP: normocephalic and atraumatic THROAT: posterior oropharynx normal Eye: COMMON NORMALS: conjunctivae normal CONJUNCTIVA: Yes conjunctivae normal SCLERA: sclerae normal Neck/C-Spine: COMMON NORMALS: supple GENERAL: Yes trachea midline Resp: COMMON NORMALS: normal respiratory effort and clear to auscultation bilaterally EFFORT & INSPECTION: Yes able to speak in complete sentences AUSCULTATION: clear to auscultation bilaterally Cardio: COMMON NORMALS: regular rate and regular rhythm RATE: regular rate RHYTHM: regular rhythm GI: COMMON NORMALS: Soft to palpation PALPATION: Yes Soft to palpation, Yes Tenderness to palpation present (GI) Details: RLQ and other (And generalized), Yes Guarding due to palpation present (GI) in the RLQ and No Rigid due to palpation OTHER: Referred pain to percussion Extremity: GENERAL: Yes normal exam except as noted and No edema Neuro: COMMON NORMALS: moves all extremities SENSORIUM/ORIENTATION: Yes alert and No Orientation impaired Psych: COMMON NORMALS: mental status grossly normal and Normal thought process present THOUGHT PROCESS: Normal thought process present Course ED course: - Patient was seen and evaluated by me at bedside - Patient placed on cardiac monitors, IV access obtained - Initial evaluation notable for mildly ill appearance, distress due to pain, concerning abdominal exam without evidence of acute abdomen requiring intervention prior to further evaluation. - Analgesia ordered, antiemetic ordered - Labs notable for leukocytosis, hemoconcentration, thrombocytosis which is likely reactive. Metabolic panel with decreased bicarb and minimal increase in anion gap likely secondary to infectious etiology. Urinalysis not concerning for urinary tract infection. Lactic acid initially elevated though improved with IV fluid resuscitation - Imaging notable for sniffing and inflammation within the pelvis and right lower quadrant including multiple abscesses and evidence of free air within this region. - Case discussed with general surgery Dr. Mcdowell who will come evaluate the patient in the emergency department. - Fluids greater than 30 cc/kg ideal body weight and antibiotics given. - Upon serial reexamination after treatment the patient was mildly improved with symptom treatment though pain recurred and additional analgesia ordered - Based on patient history, evaluation, labs, and imaging as interpreted the most likely cause of the patient's condition is severe sepsis secondary to intra-abdominal abscesses likely secondary to prior perforation of diverticulitis - The results of ED evaluation were discussed with the patient including plan for admission due to requirement for level of care not available if discharged to prevent significant worsening/deterioration. - Patient to be admitted to Dr. Mcdowell's surgery service. Given evidence of s epsis including some evidence of free air patient to be admitted to the ICU. - Patient was admitted without further deterioration or significant events. Note: Click bubbles or prepopulated martel in note writing are used for assistance with data collection and billing and are inherently more limited than narrative and other text portions of this note. Please use narrative for additional clini carole history and defer to narrative/free test for any case of contradictory information. If information appears in only free text or click bubble it should be considered present or absent as reported. Please contact note documentation writer for clarifications of clinical information or contradictory information. MDM is a brief summary, contradictory or erroneous seeming information should be clarified and full note should be reviewed. Vital Signs: Vital signs: Vital Signs Temperature 98.0 F 05/01/21 00:00 Pulse Rate 73 05/01/21 00:00 Respiratory Rate 20 H 05/01/21 00:53 Blood Pressure 144/85 05/01/21 00:00 Pulse Oximetry 95 05/01/21 00:00 MDM - Abdominal Pain Medical Decision Making 35-year-old lady with recent treatment for diverticulitis with improvement now presenting with worsening symptoms. Patient found to have sepsis with intra- abdominal abscesses and foci of free air. Patient to be admitted to the hospital under general surgery service for continued treatment and definitive management. Patient to be admitted to ICU given evidence of sepsis and CT findings. Medical Records I reviewed the patient's medical records. Lab Data I reviewed the patient's lab results. : 04/30/21 05:16 04/30/21 05:16 Labs/Radiology: Radiology Impressions Abdomen/Pelvis CT 04/29/21 07:00 IMPRESSION: 1. Abscess in the RIGHT abdomen extending into the lower quadrant with air- fluid level. This more distended today with increased air. This measures 6.5 x 6.1 x 12.7 cm AP by transverse by craniocaudal and appears to communicate with deeper abscesses in the pelvis. 2. Smaller peripheral enhancing abscesses in the pelvis are similar in appearance. Anterior pelvic abscess demonstrates more associated air today. 3. Diffuse thickening of the sigmoid colon compatible with diverticulitis appears improved. 4. Trace bilateral pleural fluid. 5. Mesenteric edema in the midabdomen and pelvis. Abscess Drainage CT 04/30/21 11:30 IMPRESSION: 1. Uncomplicated placement of 10 [place] drainage catheter in the large RIGHT lower quadrant abscess. 2. Specimen collected from the abscess cavity and sent for culture and sensitivity. Laboratory Results WBC 19.9 10^3/uL (4.0-10.0) H 04/25/21 11:22 RBC 6.04 10^6/uL (4.1-5.3) H 04/25/21 11:22 Hgb 16.7 g/dL (11.5-15.3) H 04/25/21 11:22 Hct 52.6 % (37.0-47.0) H 04/25/21 11:22 MCV 87.1 fl (81-99) 04/25/21 11:22 MCH 27.6 pg (28.0-34.0) L 04/25/21 11:22 MCHC 31.7 g/dL (30.0-36.0) 04/25/21 11: RDW 13.5 % (12.1-15.1) 04/25/21 11:22 Plt Count 501 10^3/cmm (130-400) H 04/25/21 11:22 MPV 10.4 fL (7.4-10.4) 04/25/21 11:22 Neut % (Auto) 89.4 % 04/25/21 11:22 Lymph % (Auto) 7.8 % 04/25/21 11:22 Harmon % (Auto) 1.9 % 04/25/21 11: Eos % (Auto) 0.2 % 04/25/21 11: Baso % (Auto) 0.3 % 04/25/21 11:22 Neut # (Auto) 17.82 10^3/uL (1.8-7.7) H 04/25/21 11: Lymph # (Auto) 1.6 10^3/uL (0.8-4.8) 04/25/21 11:22 Harmon # (Auto) 0.4 10^3/uL (0.2-0.9) 04/25/21 11:22 Eos # (Auto) 0.0 10^3/uL (0.0-0.8) 04/25/21 11:22 Baso # (Auto) 0.1 10^3/uL (0.0-0.1) 04/25/21 11:22 Nucleated RBC % (auto) 0 % 04/25/21 11: Nucleated RBCs # 0.0 /100WBC 04/25/21 11:22 Sodium 138 mmol/L (136-145) 04/25/21 11:22 Potassium 4.0 mmol/L (3.5-5.1) 04/25/21 11:22 Chloride 107 mmol/L (98-107) 04/25/21 11:22 Carbon Dioxide 15 mmol/L (22-29) L 04/25/21 11:22 Anion Gap 20.0 (5-19) H 04/25/21 11:22 BUN 12 mg/dL (6-20) 04/25/21 11:22 Creatinine 0.6 mg/dL (0.5-0.9) 04/25/21 11:22 GFR Calculation 113.8 mL/min (90-130) 04/25/21 11: Glucose 189 mg/dL (65-115) H 04/25/21 11:22 Calculated Osmolality 291 mOsm/kg (285-295) 04/25/21 11:22 Lactic Acid 1.8 mmol/L (0.5-2.2) 04/25/21 15:09 Lactic Acid (Sepsis) 1.7 mmol/L (0.5-2.2) 04/25/21 16:57 Calcium 9.6 mg/dL (8.5-10.5) 04/25/21 11:22 Total Bilirubin 0.7 mg/dL (0.15-1.2) 04/25/21 11:22 AST 16 U/L (0-32) 04/25/21 11:22 ALT 14 U/L (0-33) 04/25/21 11:22 Alkaline Phosphatase 67 IU/L (35-105) 04/25/21 11:22 Total Protein 7.7 g/dL (6.6-8.7) 04/25/21 11:22 Albumin 4.2 g/dL (3.5-5.2) 04/25/21 11:22 Globulin 3.5 g/dL (1.3-4.6) 04/25/21 11: Lipase 28 U/L (13-60) 04/25/21 11:22 Urine Color Yellow (Yellow) 04/25/21 11:34 Urine Appearance Cloudy (CLEAR) 04/25/21 11:34 Urine pH 5 (5-7) 04/25/21 11:34 Ur Specific Gary 1.025 (1.005-1.030) 04/25/21 11:34 Urine Protein 1+ (Negative) H 04/25/21 11:34 Urine Glucose (UA) Norm (Normal) 04/25/21 11:34 Urine Ketones 1+ (Negative) H 04/25/21 11:34 Urine Blood Neg (Negative) 04/25/21 11:34 Urine Nitrate Negative (Negative) 04/25/21 11:34 Urine Bilirubin 1+ (Negative) H 04/25/21 11:34 Urine Urobilinogen 4 mg/dL (Negative) H 04/25/21 11:34 Ur Leukocyte Esterase Negative (Negative) 04/25/21 11:34 Urine RBC None /hpf (0-2) 04/25/21 11:34 Urine WBC None /hpf (0-5) 04/25/21 11:34 Ur Squamous Epith Cells 0-4 /hpf (0-5) H 04/25/21 11:34 Calcium Oxalate Crystal 10-15 /hpf H 04/25/21 11:34 Amorphous Sediment 4+ /hpf 04/25/21 11:34 Urine Bacteria 1+ /hpf (NONE) H 04/25/21 11:34 Urine HCG, Qual Negative (Negative) 04/25/21 11:34 Critical Care Time Critical Care Time: Critical Care Time: Yes Total Critical Care Time: 40 Attestation: Due to a high probability of clinically significant, possibly life threatening deterioration, the patient required my highest level of attention and preparedness to intervene emergently and I personally spent this critical care time directly and personally managing the patient. This critical care time included obtaining a history; examining the patient; pulse oximetry; ordering and review of laboratory and imaging studies; arranging urgent treatment with development of a management plan; evaluation of patient's response to treatment; frequent reassessment; and, discussions with other providers as applicable. It was exclusive of separately billable procedures. Primary systems involved are gastrointestinal, cardiovascular, and immune Discharge Plan Discharge Patient Disposition: Admitted As Inpatient Admit Provider: Logan Mcdowell Clinical Impression: Intra-abdominal abscess Sepsis Qualifiers: Sepsis acute organ dysfunction status: without acute organ dysfunction Condition: Stable Coding Level of Care Code ED D[employer]op[employer] Operator for Chg Fwd Exam Comprehensive
[2021-04-25] MEDS: morphine 4 mg/mL SDV 1 mL IVP ×2 (13:19→21:02)
[2021-04-25] MEDS: metoclopramide 5 mg/mL SDV 2 mL 10 MG IVP (13:19)
[2021-04-25] MEDS: sodium chloride 0.9% 1,000 ML 999 ML IV ×2 (13:20→15:45)
[2021-04-25] MEDS: iohexol 300 mg/mL 100 mL Btl IV (13:32)
--- NOTE | 2021-04-25 13:50 | PC.NURSE ---
PATIENT PLACED ON CONTINUOUS BEDSIDE CARDIAC, BP AND O2 MONITOR.
[2021-04-25 14:10] LABS: Add Urine Microscopic? YES; Bilirubin Urine 1+ (Negative); Blood Urine Neg (Negative); Glucose Urine UA Norm (Normal); Ketones Urine 1+ (Negative); Leukocyte Esterase Urine Negative (Negative); Nitrate Urine Negative (Negative); Protein Urine 1+ (Negative); Specific Gravity, Urine 1.025 (1.005-1.030); Urine Appearance Cloudy (CLEAR); Urine Color Yellow (Yellow); Urobilinogen Urine 4 mg/dL (Negative); pH Urine 5 (5-7)
[2021-04-25 14:12] LABS: Add Urine Culture? No; Amorphous Sediment Urine 4+ /hpf; Bacteria Urine 1+ /hpf; Squamous Epithelial Cell Urine 0-4 /hpf (0-5)
[2021-04-25 14:21] LABS: Lactic Sepsis W/Reflex 2.4 mmol/L (0.5-2.2)
[2021-04-25] MEDS: HYDROmorphone 1 mg/mL INJ 1 mL IVP ×2 (14:49→17:55)
[2021-04-25] MEDS: piperacillin-tazobactam 4.5 GM in sodium chloride 0.9% (plus) 50 ML IV (14:50)
[2021-04-25] MEDS: sodium chloride 0.9% 1,000 ML 125 ML IV (14:51)
[2021-04-25 15:36] LABS: Lactic Sepsis W/Reflex 1.8 mmol/L (0.5-2.2)
[2021-04-25 15:46] LABS: Reflex Lactate Order REFLEX LACTIC ORDERD
--- NOTE | 2021-04-25 16:33 | PM.HP ---
Providers/Chief Complaint Primary Care Provider: Ronda Sparks Chief Complaint: Intra-abdominal abscess History of Present Illness Nazia Bowling is a 35 year old female on whom I had previously performed a laparoscopic cholecystectomy few years ago. Patient presented to the emergency room on 04/07/2021 and was treated with outpatient antibiotic therapy for sigmoid diverticulitis. She had been doing well and had recovered with oral antibiotics but last night she had some chills and today she developed severe lower abdominal pain associated with nausea and vomiting that has been ongoing the whole day. The pain is mainly in the lower abdomen, does not radiate, worse with physical activity. She states that she has been having daily bowel movements. Denies any difficulty with urination. She states that she has been dealing with left lower quadrant pain for the last 6 months. No prior colonoscopy. She did have some loose stools intermittently since her cholecystectomy many years ago Review of Systems General: Reports: 10 or more systems reviewed and unremarkable except in HPI and below Medications/Allergies Home Medications Medication Instructions Recorded Confirmed Last Taken Type esjcqno-hwfettpeebjei-fxdhkqja 250 2 tab PO Q6H PRN 04/04/19 04/25/21 Unknown History mg-250 mg-65 mg tablet (Excedrin Migraine) naproxen 500 mg tablet 500 mg PO BID PRN 07/06/19 04/25/21 Unknown History hydrocodone 5 mg-acetaminophen 325 1 tab PO Q6H PRN #15 tab 04/07/21 04/25/21 Unknown Rx mg tablet ondansetron HCl 4 mg tablet 4 mg PO Q6H PRN #20 tab 04/07/21 04/25/21 Unknown Rx (Zofran) Allergies Allergy/AdvReac Type Severity Reaction Status Date / Time No Known Allergies Allergy Verified 05/22/20 15:12 PFSH Acute PFSH: Medical History Alcohol use disorder History of persistent depressive disorder Insomnia disorder, with non-sleep disorder mental comorbidity, recurrent MDD (major depressive disorder), recurrent, in partial remission Methamphetamine use disorder, mild Surgical History H/O tubal ligation History of hysterectomy Hx of cholecystectomy S/P tonsillectomy and adenoidectomy Social History Smoking and tobacco status: current some day smoker Vitals/I&O/Wt Last Vital Signs Temp 97.4 F L 04/25/21 10:46 Pulse 77 04/25/21 14:18 Resp 18 04/25/21 14:49 BP 147/101 04/25/21 14:18 Pulse Ox 98 04/25/21 14:18 04/25/21 04/25/21 04/25/21 06:59 14:59 22:59 Intake Total 1050 / 1050 Balance 1050 / 1050 Weight last 48 hrs Weight 196 lb Physical Exam Narrative: HEENT: Normocephalic Eye: Sclera /conjunctiva normal Abdomen: Soft to palpation, tender lower abdomen, voluntary guarding, no rigidity Neurological: Oriented to place person and time Skin: Intact, no lesions appreciated on gross exam Data : 04/25/21 11:22 04/25/21 11:22 Micro: Microbiology 04/25/21 14:39 Blood Culture - Preliminary Blood SPECIMEN COLLECTED 04/25/21 14:36 Blood Culture - Preliminary Blood SPECIMEN COLLECTED CT Abd/Pel: Radiologist's impression: 1.? Significant acute inflammatory process centered within the pelvis. Multiple abscess cavities in the pelvis. The largest abscess in the RIGHT lower quadrant measures 2.0 x 4.3 cm. There is an interloop abscess anteriorly. Additional smaller abscesses in the RIGHT lower quadrant. 2.? Numerous foci of free air cannot be placed within the lumen suggesting intestinal perforation. 3.? New complex free fluid in the pelvis is probably from infection or bleeding. 4.? Small bowel fluid distention from an ileus. 5.? Small amount of perihepatic fluid. 6.? Prior cholecystectomy. 7.? The appendix is not identified and by history was removed on 04/07/2021. A&P Assessment and plan (1) Intra-abdominal abscess: 35-year-old female who presents to the ER with abdominal pain, nausea and vomiting since this morning. Patient had been seen in the emergency room couple of weeks ago with sigmoid diverticulitis and that responded well to oral antibiotics. On physical exam she is tender in the lower abdomen bilaterally. Her WBC is 19.[address] abdomen pelvis shows significant inflammation in the pelvis with multiple abscesses with the largest one measuring 4.3 x 2 cm and small foci of free air. Appendix was visualized on the CT scan performed 2 weeks ago but not today. I discussed the findings with the patient and the fact that the acute sigmoid diverticulitis has now progressed to perforated sigmoid diverticulitis with abdominal abscesses. At present she is hemodynamically stable without any evidence of peritonitis. Admit as inpatient to ICU for close monitoring Celaya to gravity for accurate monitoring of urine output IV Zosyn every 8h CBC, BMP in the morning Protonix IV for GI prophylaxis Lovenox for DVT prophylaxis IV fluids at 100 cc/h Discussed with the patient that if she were to become hypotensive or developing worsening peritonitis then she will need to go to the operating room for possible sigmoid colectomy with colostomy but at this point since she is stable we will try to manage her conservatively with IV antibiotics. Status: Acute Attestations Medical Necessity Statement*: She will need greater than 2 nights of inpatient stay due to perforated viscus likely sigmoid diverticulitis with intra-abdominal abscess Coding Level of Care Code Acute St[employer]emason Apprentice for Shahriar John Diagnoses Intra-abdominal abscess K65.1
[2021-04-25 17:24] LABS: Lactic Acid level (Lactate) 1.7 mmol/L (0.5-2.2)
[2021-04-25] MEDS: pantoprazole 40 mg SDV IVP (21:02)
[2021-04-25] MEDS: D5-NS 0.45% + KCL 20 mEq 20 MEQ/1,000 ML BAG 100 MEQ IV (21:05)
[2021-04-25] MEDS: sennosides-docusate Tablet 1 TAB PO (21:05)
[2021-04-25] MEDS: piperacillin-tazobactam 3.375 GM in sodium chloride 0.9% (plus) 50 ML IV (23:13)
[2021-04-26] VITALS (20 sets, daily range): BP systolic 113–188; BP diastolic 73–106; PULSE 90–123; RESP 16–29; TEMP 37.1–38.1; O2SAT 93–96
[2021-04-26] MEDS: morphine 4 mg/mL SDV 1 mL IVP ×7 (00:01→07:21)
[2021-04-26] MEDS: ondansetron 2 mg/ML SDV 2 mL 4 MG IVP ×3 (01:36→20:09)
[2021-04-26 05:17] LABS: Basophils % 0.2 %; Hematocrit 44.2 % (37.0-47.0); Hemoglobin 13.9 g/dL (11.5-15.3); Lymphocytes # 1.6 10^3/uL (0.8-4.8); Lymphocytes % 8.1 %; Mean Corpuscular HGB Conc 31.4 g/dL (30.0-36.0); Mean Corpuscular Hemoglobin 27.9 pg (28.0-34.0); Mean Corpuscular Volume 88.8 fl (81-99); Mean Platelet Volume 10.6 fL (7.4-10.4); Monocytes % 4.8 %; Neutrophils # 17.47 10^3/uL (1.8-7.7); Neutrophils % 86.5 %; Nucleated Red Blood Cells % 0 %; Platelet Count 317 10^3/cmm (130-400); Red Blood Count 4.98 10^6/uL (4.1-5.3); Red Cell Distribution Width 13.9 % (12.1-15.1); White Blood Count 20.2 10^3/uL (4.0-10.0)
[2021-04-26 05:55] LABS: Anion Gap 15.4 (5-19); Blood Urea Nitrogen 8 mg/dL (6-20); Calcium 7.8 mg/dL (8.5-10.5); Carbon Dioxide 21 mmol/L (22-29); Chloride 108 mmol/L (98-107); Glomerular Filtration Rate 95.2 mL/min (90-130); Glucose 177 mg/dL (65-115); Osmolality Calculated 293 mOsm/kg (285-295); Potassium 4.4 mmol/L (3.5-5.1); Sodium 140 mmol/L (136-145)
[2021-04-26] MEDS: D5-NS 0.45% + KCL 20 mEq 20 MEQ/1,000 ML BAG 100 MEQ IV ×2 (06:11→16:17)
[2021-04-26] MEDS: enoxaparin 40 mg/0.4 mL Syringe SUBCUT (06:12)
[2021-04-26] MEDS: piperacillin-tazobactam 3.375 GM in sodium chloride 0.9% (plus) 50 ML IV ×3 (06:12→22:32)
--- NOTE | 2021-04-26 08:08 | P.PN_ITS ---
Subjective Subjective: Patient subjectively feels better, no nausea or vomiting, no flatus or BM. T-max was 100 and she is tachycardic in the 120s but not hypotensive. Urine output is 650 cc overnight. Patient required morphine most of the night. Discussed with her about her pain medications and she said that she stopped using meth about 10 months ago Medications: Reviewed: Yes Vitals/I&O/Wt Last Vital Signs Temp 99.3 F 04/26/21 00:00 Pulse 107 H 04/26/21 00:00 Resp 25 H 04/26/21 05:01 BP 188/98 04/26/21 00:00 Pulse Ox 94 04/26/21 00:00 04/25/21 04/26/21 04/26/21 22:59 06:59 14:59 Intake Total 2550 / 3510 960 / 3510 Output Total 625 / 625 Balance 2550 / 2885 335 / 2885 Weight last 48 hrs Weight 196 lb Physical Exam Narrative: HEENT: Normocephalic Eye: Sclera /conjunctiva normal Abdomen: Soft to palpation, less tender today, no guarding or rigidity, Celaya to gravity Neurological: Oriented to place person and time Skin: Intact, no lesions appreciated on gross exam Urinary Catheter Management: Celaya: Cath Placed During This Visit: yes Reason for Continuing Indwelling Catheter: Accurate Measurement of Urinary Output in Critically Ill Patients Urinary Catheter Date of Insertion: 04/25/21 Urinary Catheter Time of Insertion: 20:15 Data : 04/26/21 04:47 04/26/21 04:47 Micro: Microbiology 04/25/21 14:39 Blood Culture - Preliminary Blood SPECIMEN COLLECTED 04/25/21 14:36 Blood Culture - Preliminary Blood SPECIMEN COLLECTED A&P Assessment and plan (1) Intra-abdominal abscess: 35-year-old female presented with abdominal pain, nausea, vomiting 2 weeks after she had been treated with oral antibiotics with acute sigmoid diverticulitis. Patient has now developed multiple intra-abdominal abscesses likely secondary to perforated diverticulitis. She is hemodynamically stable without any evidence of peritonitis. WBC is 20 today N.p.o. except ice chips Ambulate ad carol. Celaya to gravity Continue IV fluids at 100 cc/h A.m. labs tomorrow Add Toradol and [place] along with morphine for pain control, patient was a meth user until last year Protonix for GI prophylaxis Lovenox for DVT prophylaxis Today patient appears to be clinically better, still tachycardic, T-max of 100, no evidence of peritonitis or septic shock. We will therefore continue with conservative measures Status: Acute Attestations Medical Necessity Statement*: Perforated sigmoid diverticulitis requiring greater than 2 nights of inpatient stay to ensure resolution of leukocytosis and sepsis Coding Level of Care Code Acute Soil Conservation Teacher for Shahriar John Diagnoses Intra-abdominal abscess K65.1
[2021-04-26] MEDS: ketorolac 30 mg/mL INJ 15 MG IVP ×3 (09:03→20:09)
[2021-04-26] MEDS: sennosides-docusate Tablet 1 TAB PO ×2 (09:04→18:26)
[2021-04-26] MEDS: pantoprazole 40 mg SDV IVP (09:04)
[2021-04-26] MEDS: HYDROcodone-acetaminophen 5-325 mg Tablet 1 TAB PO ×2 (10:01→16:15)
--- NOTE | 2021-04-26 17:20 | PC.NURSE ---
Shift Note Frequent safety and comfort rounds continue. Orders and/or nursing care completed as indicated. Patient monitored for response to intervention and treatment(s). Education provided regarding medication regimen for pain management, starting toradol and PO hydrocodone. Assisted with ambulation in the room and adls at bedside. Pain has been more manageable as the day has progressed. Pt remains NPO with ice chips. Educated on the diet recommendations for diverticulitis and diabetes as the patient stated that she was concerned that she might be developing diabetes. The education provided was from [facility]. Mother was concerned about the skin looking a es neely updated mother on the lab work obtained in the ER and dr salomon updated on status. Will continue to monitor.
[2021-04-27] VITALS (32 sets, daily range): BP systolic 124–174; BP diastolic 70–111; PULSE 93–113; RESP 15–32; TEMP 36.8–38.7; O2SAT 91–99
[2021-04-27] MEDS: ketorolac 30 mg/mL INJ 15 MG IVP ×4 (01:25→20:18)
[2021-04-27] MEDS: ondansetron 2 mg/ML SDV 2 mL 4 MG IVP ×2 (01:25→05:43)
[2021-04-27] MEDS: D5-NS 0.45% + KCL 20 mEq 20 MEQ/1,000 ML BAG 100 MEQ IV ×3 (02:18→23:07)
[2021-04-27] MEDS: piperacillin-tazobactam 3.375 GM in sodium chloride 0.9% (plus) 50 ML IV ×3 (06:00→23:07)
[2021-04-27] MEDS: morphine 4 mg/mL SDV 1 mL IVP ×4 (06:00→20:23)
[2021-04-27] MEDS: enoxaparin 40 mg/0.4 mL Syringe SUBCUT (06:00)
[2021-04-27 06:45] LABS: Basophils % 0.1 %; Hematocrit 36.9 % (37.0-47.0); Hemoglobin 11.2 g/dL (11.5-15.3); Lymphocytes # 0.7 10^3/uL (0.8-4.8); Lymphocytes % 4.5 %; Mean Corpuscular HGB Conc 30.4 g/dL (30.0-36.0); Mean Corpuscular Volume 92.3 fl (81-99); Mean Platelet Volume 10.2 fL (7.4-10.4); Monocytes # 0.5 10^3/uL (0.2-0.9); Monocytes % 2.8 %; Neutrophils % 91.4 %; Nucleated Red Blood Cells % 0 %; Platelet Count 190 10^3/cmm (130-400); Red Cell Distribution Width 13.7 % (12.1-15.1); White Blood Count 16.2 10^3/uL (4.0-10.0)
[2021-04-27 07:28] LABS: Anion Gap 14.9 (5-19); Blood Urea Nitrogen 5 mg/dL (6-20); Calcium 7.6 mg/dL (8.5-10.5); Carbon Dioxide 19 mmol/L (22-29); Chloride 103 mmol/L (98-107); Glomerular Filtration Rate 113.8 mL/min (90-130); Glucose 150 mg/dL (65-115); Osmolality Calculated 276 mOsm/kg (285-295); Potassium 3.9 mmol/L (3.5-5.1); Sodium 133 mmol/L (136-145)
[2021-04-27] MEDS: sennosides-docusate Tablet 1 TAB PO ×2 (08:49→17:35)
[2021-04-27] MEDS: pantoprazole 40 mg SDV IVP (08:50)
[2021-04-27] MEDS: HYDROcodone-acetaminophen 5-325 mg Tablet 1 TAB PO ×2 (10:19→19:26)
--- NOTE | 2021-04-27 12:18 | PM.PN ---
Subjective Subjective: Patient had couple of episodes of emesis yesterday night, does not feel so good today but her pain is better controlled with Toradol. She is passing flatus, no BM. T-max was 100.5 Medications: Reviewed: Yes Vitals/I&O/Wt Last Vital Signs Temp 98.2 F 04/27/21 10:00 Pulse 93 04/27/21 10:00 Resp 28 H 04/27/21 10:00 BP 149/91 04/27/21 10:00 Pulse Ox 96 04/27/21 10:00 04/26/21 04/27/21 04/27/21 22:59 06:59 14:59 Intake Total 1080 / 2180 1050 / 2180 50 / 50 Output Total 400 / 800 400 / 800 Balance 680 / 1380 650 / 1380 50 / 50 Physical Exam Narrative: HEENT: Normocephalic Eye: Sclera /conjunctiva normal Abdomen: Soft to palpation, primarily tender in the right lower quadrant, voluntary guarding, no rigidity, Celaya to gravity Neurological: Oriented to place person and time Skin: Intact, no lesions appreciated on gross exam Urinary Catheter Management: Celaya: Cath Placed During This Visit: yes Reason for Continuing Indwelling Catheter: Accurate Measurement of Urinary Output in Critically Ill Patients Urinary Catheter Date of Insertion: 04/25/21 Urinary Catheter Time of Insertion: 20:15 Data : 04/27/21 06:37 04/27/21 06:37 Micro: Microbiology 04/25/21 14:36 Blood Culture - Preliminary Blood NEGATIVE TO DATE 04/25/21 14:39 Blood Culture - Preliminary Blood NEGATIVE TO DATE A&P Assessment and plan (1) Intra-abdominal abscess: 35-year-old female presented with abdominal pain, nausea, vomiting 2 weeks after she had been treated with oral antibiotics with acute sigmoid diverticulitis. Patient has now developed multiple intra-abdominal abscesses likely secondary to perforated diverticulitis. She is hemodynamically stable without any evidence of peritonitis. She is passing flatus, start clear liquid diet Ambulate ad carol. Celaya to gravity Continue IV fluids at 100 cc/h A.m. labs tomorrow Toradol, [place] and morphine for pain control, patient was a meth user until last year Protonix for GI prophylaxis Lovenox for DVT prophylaxis Today patient appears to be clinically better, still tachycardic, T-max of 100.5, no evidence of peritonitis or septic shock and WBC is trending down We will therefore continue with conservative measures Status: Acute (2) Sepsis: Patient had T-max of 100.5, WBC is down to 16 K, continue IV Zosyn Status: Acute Qualifiers: Sepsis acute organ dysfunction status: without acute organ dysfunction Attestations Medical Necessity Statement*: Intra-abdominal abscess requiring continued inpatient stay for IV antibiotics and monitoring Coding Level of Care Code Acute Epidemiology Internship for [facility] Diagnoses Intra-abdominal abscess K65.1 Sepsis A41.9 Sepsis acute organ dysfunction status: without acute organ dysfunction
--- NOTE | 2021-04-27 19:54 | PC.NURSE ---
Shift Note Pt has rested in bed most of the day. She has been up to [facility] [place], flatus and tiny amount of reddish orange mucous discharge noted. She bathed and used shower cap with stand by assist. She has received Morphine twice and Hydrocodone once this shift She has not required any nausea medication. She states her lower abdomen remains tender, requested it not be palpated. She said it hurt more after she had been up moving around and bending due to bathing. Frequent safety and comfort rounds continue. Orders and/or nursing care completed as indicated. Patient monitored for response to intervention and treatment(s). Education provided includes Morphine, Protonix, Hydrocodone , Toradol and diverticulitis. Patient verbalized understanding of plan of care, malcolm medications. . Will continue to monitor.
[2021-04-28] VITALS (29 sets, daily range): BP systolic 123–157; BP diastolic 74–119; PULSE 74–103; RESP 1–38; TEMP 36.8–37.6; O2SAT 88–100
[2021-04-28] MEDS: ketorolac 30 mg/mL INJ 15 MG IVP ×4 (01:45→19:21)
[2021-04-28] MEDS: HYDROcodone-acetaminophen 5-325 mg Tablet 1 TAB PO ×3 (03:15→17:10)
[2021-04-28 04:03] LABS: Basophils % 0.2 %; Eosinophils # 0.1 10^3/uL (0.0-0.8); Eosinophils % 0.6 %; Hematocrit 32.4 % (37.0-47.0); Hemoglobin 10.1 g/dL (11.5-15.3); Lymphocytes # 0.9 10^3/uL (0.8-4.8); Lymphocytes % 9.1 %; Mean Corpuscular HGB Conc 31.2 g/dL (30.0-36.0); Mean Corpuscular Hemoglobin 28.1 pg (28.0-34.0); Mean Corpuscular Volume 90.3 fl (81-99); Mean Platelet Volume 10.3 fL (7.4-10.4); Monocytes # 0.4 10^3/uL (0.2-0.9); Monocytes % 4.1 %; Neutrophils # 8.58 10^3/uL (1.8-7.7); Neutrophils % 85.3 %; Nucleated Red Blood Cells % 0 %; Platelet Count 175 10^3/cmm (130-400); Red Blood Count 3.59 10^6/uL (4.1-5.3); Red Cell Distribution Width 13.5 % (12.1-15.1); White Blood Count 10.1 10^3/uL (4.0-10.0)
[2021-04-28 04:25] LABS: Anion Gap 12.7 (5-19); Blood Urea Nitrogen 5 mg/dL (6-20); Calcium 8.1 mg/dL (8.5-10.5); Carbon Dioxide 20 mmol/L (22-29); Chloride 106 mmol/L (98-107); Glomerular Filtration Rate 113.8 mL/min (90-130); Glucose 131 mg/dL (65-115); Osmolality Calculated 279 mOsm/kg (285-295); Potassium 3.7 mmol/L (3.5-5.1); Sodium 135 mmol/L (136-145)
[2021-04-28] MEDS: piperacillin-tazobactam 3.375 GM in sodium chloride 0.9% (plus) 50 ML IV ×3 (06:24→22:41)
[2021-04-28] MEDS: enoxaparin 40 mg/0.4 mL Syringe SUBCUT (06:24)
[2021-04-28] MEDS: sennosides-docusate Tablet 1 TAB PO ×2 (09:17→17:10)
[2021-04-28] MEDS: morphine 4 mg/mL SDV 1 mL IVP ×4 (09:18→22:44)
[2021-04-28] MEDS: pantoprazole 40 mg SDV IVP (09:21)
[2021-04-28] MEDS: D5-NS 0.45% + KCL 20 mEq 20 MEQ/1,000 ML BAG 100 MEQ IV (09:24)
--- NOTE | 2021-04-28 10:19 | PC.CHAP ---
Pastoral Care Encounter/Spiritual Assessment Type of Contact [] Declined nuclear medicine chief technologist visit [] Patient/Family/Request visit [] Outpatient visit [] Follow-up visit [] Physician referral [] Code/Alert [x] Routine visit [] Staff referral [] Actively dying [] Patient sleeping [] Family support [] [] Out of room [] Palliative care [] [] Receiving care in room [] Pre-surgical visit [] Trauma [] Long length of stay [x] ICU visit [] Other: Relational/Emotional Strength [] Patient feels connected with others/family/visitors/staff [] Distress [] Loneliness/isolation [] Abandonment Spirituality of Patient [] Person of Bertha [] Attends Christianity of their Bertha [] Believes in Prayer [] Reads Bible or Yazidism materials [] There are Spiritual issues to be addressed Telemetry Rn Interventions [x] Prayer [] Active listening [] Non-anxious presence [] Spiritual/emotional support [] Crisis/trauma care [] Spiritual counseling [] Bereavement support [] Provided bereavement packet [] Provided Bible/devotional materials [] Provided toy/stuffed animal, coloring book to patient or family member [] Provided Communion [] Anointing/[place] [] Salvation [x] Completed spiritual assessment [] Other: Impact on Illness or Injury [] Angry [] Fearful [] Anxious [] Often cries [] Exhaustion [] Unable to work [] Unable to attend sabianism [] Unable to walk/stand [] Unable to read [] Unable to drive [] Unable to eat/drink [] Unable to sleep [] Unable to be with family [] Patient intubated [] Other: Summary Time spent with patient
--- NOTE | 2021-04-28 10:23 | P.PN_ITS ---
Subjective Subjective: Patient doing better, no nausea or vomiting yesterday, had a bowel movement today. She was febrile last night to 101.6. Medications: Reviewed: Yes Vitals/I&O/Wt Last Vital Signs Temp 99.6 F 04/28/21 07:00 Pulse 83 04/28/21 07:00 Resp 18 04/28/21 09:18 BP 123/86 04/28/21 07:00 Pulse Ox 97 04/28/21 09:18 04/27/21 04/28/21 04/28/21 22:59 06:59 14:59 Intake Total 450 / 2850 1050 / 2850 1078.333 / 1078.333 Output Total 750 / 1250 500 / 1250 Balance -300 / 1600 550 / 1600 1078.333 / 1078.333 Physical Exam Narrative: Abdomen: Soft, tender right lower quadrant, no guarding or rigidity Urinary Catheter Management: Celaya: Cath Placed During This Visit: yes Reason for Continuing Indwelling Catheter: Accurate Measurement of Urinary Output in Critically Ill Patients Urinary Catheter Date of Insertion: 04/25/21 Urinary Catheter Time of Insertion: 20:15 Data : 04/28/21 03:48 04/28/21 03:48 A&P Assessment and plan (1) Intra-abdominal abscess: 35-year-old female presented with abdominal pain, nausea, vomiting 2 weeks after she had been treated with oral antibiotics with acute sigmoid diverticulitis. Patient has now developed multiple intra-abdominal abscesses likely secondary to perforated diverticulitis. She is hemodynamically stable without any evidence of peritonitis. Patient had a bowel movement, advance to full liquid diet Ambulate ad carol. Transfer to floor DC Celaya Decrease IV fluids to 30 cc/h cc/h A.m. 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 Protonix for GI prophylaxis Lovenox for DVT prophylaxis Today patient appears to be clinically better, still tachycardic, T-max of 100.5, no evidence of peritonitis or septic shock and WBC is trending down We will therefore continue with conservative measures Status: Acute (2) Sepsis: Patient had T-max of 101.6, WBC is down to 10 K, continue IV Zosyn Repeat CT abdomen pelvis with oral and IV contrast tomorrow to assess if any of the abscess are amenable to percutaneous drainage since patient continues to be febrile Status: Acute Qualifiers: Sepsis acute organ dysfunction status: without acute organ dysfunction Attestations Medical Necessity Statement*: Perforated diverticulitis with abdominal abscess who continues to be febrile with T-max of 101.6 requiring continued IV antibiotics Coding Level of Care Code Acute Savings Teller for [facility] Diagnoses Intra-abdominal abscess K65.1 Sepsis A41.9 Sepsis acute organ dysfunction status: without acute organ dysfunction
--- NOTE | 2021-04-28 19:26 | PC.NURSE ---
Shift Note: Pt has been much more active today. SHe has been up in her room and ambulating in the baer. She complains of gas pain and lower right quadrant abdominal pain. Flatulence noted through the shift. She has been to [facility] [place], diarrhea noted. She required more pain medications in the am, her pain has tapered off more in the afternoon. VSS. Celaya removed, pt tolerating well. She has a new IV in Left arm, Ultrasound guidance required. IV fluids decreased to 30ml/hr. Her diet was changed to full liquid today. Frequent safety and comfort rounds continue. Orders and/or nursing care completed as indicated. Patient monitored for response to intervention and treatment(s). Education provided includes ambulation, morphine and pain control . Patient vebalized understadning of medications and ongoing plan of care.. Will continue to monitor.
[2021-04-29] VITALS (22 sets, daily range): BP systolic 110–162; BP diastolic 68–99; PULSE 76–103; RESP 16–20; TEMP 36.8–38.2; O2SAT 94–100
[2021-04-29] MEDS: morphine 4 mg/mL SDV 1 mL IVP ×5 (02:12→21:31)
[2021-04-29] MEDS: ketorolac 30 mg/mL INJ 15 MG IVP ×4 (02:12→19:31)
--- NOTE | 2021-04-29 03:07 | PC.NURSE ---
No acute changes overnight. Patient does require pain meds for abdominal pain. Transfers self to [facility]. Loose stools noted.
[2021-04-29 03:36] LABS: Basophils % 0.3 %; Eosinophils # 0.2 10^3/uL (0.0-0.8); Eosinophils % 2.5 %; Hematocrit 31.4 % (37.0-47.0); Hemoglobin 9.9 g/dL (11.5-15.3); Lymphocytes # 1.1 10^3/uL (0.8-4.8); Lymphocytes % 16.5 %; Mean Corpuscular HGB Conc 31.5 g/dL (30.0-36.0); Mean Corpuscular Hemoglobin 28.1 pg (28.0-34.0); Mean Corpuscular Volume 89.2 fl (81-99); Mean Platelet Volume 10.3 fL (7.4-10.4); Monocytes # 0.5 10^3/uL (0.2-0.9); Monocytes % 7.6 %; Neutrophils # 4.85 10^3/uL (1.8-7.7); Neutrophils % 72.7 %; Nucleated Red Blood Cells % 0 %; Platelet Count 201 10^3/cmm (130-400); Red Blood Count 3.52 10^6/uL (4.1-5.3); Red Cell Distribution Width 13.6 % (12.1-15.1); White Blood Count 6.7 10^3/uL (4.0-10.0)
[2021-04-29 03:53] LABS: Anion Gap 12.7 (5-19); Blood Urea Nitrogen 5 mg/dL (6-20); Calcium 8.3 mg/dL (8.5-10.5); Carbon Dioxide 22 mmol/L (22-29); Chloride 105 mmol/L (98-107); Glomerular Filtration Rate 113.8 mL/min (90-130); Glucose 93 mg/dL (65-115); Osmolality Calculated 279 mOsm/kg (285-295); Potassium 3.7 mmol/L (3.5-5.1); Sodium 136 mmol/L (136-145)
[2021-04-29] MEDS: enoxaparin 40 mg/0.4 mL Syringe SUBCUT (05:06)
[2021-04-29] MEDS: piperacillin-tazobactam 3.375 GM in sodium chloride 0.9% (plus) 50 ML IV ×3 (06:04→22:43)
--- NOTE | 2021-04-29 07:00 | CT_ITS ---
WS: [id number] CT ABDOMEN PELVIS TECHNIQUE: Contrast-enhanced CT of the abdomen and pelvis with coronal and sagittal reformatted image s. CLINICAL INFORMATION: Intra-abdominal abscess COMPARISON: CT chest 04/20 02/03 and 04/07/2021 DLP: 1886.[address] scans at [facility] use at least one of these dose optimization techniques: automated e xposure control; mA and/or kV adjustment per patient size (includes targeted exams where dose is matc hed to clinical indication); or iterative reconstruction. FINDINGS: Abscess within the RIGHT abdomen extending into the RIGHT lower quadrant with air-fluid level is more distended today with more associated air. This is mostly air-filled and measures approximately 6.5 x 6.1 x 12.7 cm AP by transverse by craniocaudal. This appears to communicate with additional previous ly described fluid collections in the pelvis. Compression of the RIGHT adjacent colon. Additional sma ller Previously described peripheral enhancing abscesses within the pelvis are similar in appearance also with more associated air today. Small amount of scattered free intraperitoneal air. Trace pleural fluid in the lung bases. Subsegmental atelectasis RIGHT lower lobe. Mild diffuse fatty infiltration liver. Cholecystectomy. Mild hepatomegaly. Splenomegaly. Normal GE junction. Mild fatty atrophy of the pancreas. Celiac and SMA appear patent. Adrenal glands are normal. Normal renal parenc hymal enhancement. No hydronephrosis. Normal caliber abdominal aorta. CT/CT abdomen pelvis w con* [id number] IMPRESSION: 1. Abscess in the RIGHT abdomen extending into the lower quadrant with air-flu id level. This more distended today with increased air. This measures 6.5 x 6.1 x 12.7 cm AP by transverse by craniocaudal and appears to communicate with gregory per abscesses in the pelvis. 2. Smaller peripheral enhancing abscesses in the pelvis are similar in appeara nce. Anterior pelvic abscess demonstrates more associated air today. 3. Diffuse thickening of the sigmoid colon compatible with diverticulitis appe ars improved. 4. Trace bilateral pleural fluid. 5. Mesenteric edema in the midabdomen and pelvis.
[2021-04-29] MEDS: sennosides-docusate Tablet 1 TAB PO ×2 (07:59→18:18)
[2021-04-29] MEDS: pantoprazole 40 mg SDV IVP (08:02)
[2021-04-29] MEDS: iohexol 300 mg/mL 100 mL Btl IV (10:02)
[2021-04-29] MEDS: iohexol 300 mg/mL 50 mL Btl PO (10:03)
[2021-04-29] MEDS: HYDROcodone-acetaminophen 5-325 mg Tablet 1 TAB PO ×2 (10:24→18:18)
[2021-04-29] MEDS: fluconazole 100 mg Tablet 150 MG PO (12:37)
--- NOTE | 2021-04-29 14:11 | PC.NURSE ---
Report given to Kerline RN. Pt transferred to room 254-1. Tolerated well. Nurse at bedside to accept pt.
[2021-04-29] MEDS: D5-NS 0.45% + KCL 20 mEq 20 MEQ/1,000 ML BAG 30 MEQ IV (15:55)
--- NOTE | 2021-04-29 15:57 | PM.PN ---
Subjective Subjective: patient denies any nausea, vomiting, had BM today, has been afebrile for about 36 hours. Medications: Reviewed: Yes Vitals/I&O/Wt Last Vital Signs Temp 98.5 F 04/29/21 14:00 Pulse 79 04/29/21 14:00 Resp 18 04/29/21 14:00 BP 158/94 04/29/21 14:00 Pulse Ox 94 04/29/21 14:00 04/29/21 04/29/21 04/29/21 06:59 14:59 22:59 Intake Total 50 / 2378.333 1010 / 1902 892 / 1902 Output Total 125 / 975 350 / 350 Balance -75 / 1403.333 660 / 1552 892 / 1552 Physical Exam Narrative: Abdomen: soft, ND, tender RLQ, no guarding or rigidity Urinary Catheter Management: Celaya: Cath Placed During This Visit: yes, but has since been removed by the nurse Reason for Continuing Indwelling Catheter: Accurate Measurement of Urinary Output in Critically Ill Patients Urinary Catheter Date of Insertion: 04/25/21 Urinary Catheter Time of Insertion: 20:15 Date Urinary Catheter Removed: 04/28/21 Time Urinary Catheter Discontinued: 10:30 Data : 04/29/21 03:07 04/29/21 03:07 A&P Assessment and plan (1) Intra-abdominal abscess: 35-year-old female presented with abdominal pain, nausea, vomiting 2 weeks after she had been treated with oral antibiotics with acute sigmoid diverticulitis. Patient has now developed multiple intra-abdominal abscesses likely secondary to perforated diverticulitis. She is hemodynamically stable without any evidence of peritonitis. GI soft diet Ambulate ad carol. Transfer to floor IV fluids to 30 cc/h cc/h CT abdomen/pelvis showed RLQ abscess - discussed with Dr. 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 Status: Acute (2) Sepsis: CT shows a large RLQ abscess - Plan for IR drainage tomorrow Status: Acute Qualifiers: Sepsis acute organ dysfunction status: without acute organ dysfunction Attestations Medical Necessity Statement*: abscess requiring drainage and 1 more night of stay Coding Level of Care Code Acute Software Engineer Developer for [facility] Fwd Diagnoses Intra-abdominal abscess K65.1 Sepsis A41.9 Sepsis acute organ dysfunction status: without acute organ dysfunction
[2021-04-29] MEDS: ondansetron 2 mg/ML SDV 2 mL 4 MG IVP (21:31)
[2021-04-30] VITALS (20 sets, daily range): BP systolic 131–158; BP diastolic 67–99; PULSE 55–92; RESP 15–22; TEMP 36.2–37.3; O2SAT 97–100
--- NOTE | 2021-04-30 | CT_ITS ---
WS: [id number] CT-GUIDED peritoneal abscess drainage catheter placed HISTORY: RIGHT lower quadrant abscess. DLP: 755.[address] scans at [facility] use at least one of these dose optimization techniques: automated e xposure control; mA and/or kV adjustment per patient size (includes targeted exams where dose is matc hed to clinical indication); or iterative reconstruction. Prior imaging studies are reviewed. History and physical areas reviewed. Procedure, risks and complic ations were explained to the patient. Consent is obtained. Conscious rotation was utilized. CT guidance used to localize the abscess in the RIGHT lower quadrant. Thick-walled abscess with the a bundant air. Skin is cleansed with ChloraPrep and anesthetized with 1% buffered lidocaine. Small derm atome is made. Using dilators axis is achieved into the abscess cavity over a guidewire. 10 Wallisian pi gtail catheter coiled within the abscess cavity. Purulent material was readily aspirated. Vacuum suct ion drainage bag connected. Approximately 50 cc of purulent material aspirated. Catheter secured to t he abdominal wall. No complications are evident. CT/CT drain peritoneum [id number] IMPRESSION: 1. Uncomplicated placement of 10 Wallisian drainage catheter in the large RIGHT l ower quadrant abscess. 2. Specimen collected from the abscess cavity and sent for culture and sensiti vity.
[2021-04-30] MEDS: ketorolac 30 mg/mL INJ 15 MG IVP ×4 (01:38→19:54)
[2021-04-30] MEDS: morphine 4 mg/mL SDV 1 mL IVP ×3 (04:26→16:53)
[2021-04-30] MEDS: ondansetron 2 mg/ML SDV 2 mL 4 MG IVP ×2 (04:27→08:33)
[2021-04-30 06:03] LABS: Basophils % 0.5 %; Eosinophils # 0.1 10^3/uL (0.0-0.8); Hematocrit 30.6 % (37.0-47.0); Hemoglobin 9.6 g/dL (11.5-15.3); Lymphocytes # 0.9 10^3/uL (0.8-4.8); Lymphocytes % 13.3 %; Mean Corpuscular HGB Conc 31.4 g/dL (30.0-36.0); Mean Corpuscular Hemoglobin 27.5 pg (28.0-34.0); Mean Corpuscular Volume 87.7 fl (81-99); Mean Platelet Volume 10.3 fL (7.4-10.4); Monocytes # 0.7 10^3/uL (0.2-0.9); Monocytes % 9.8 %; Neutrophils # 4.89 10^3/uL (1.8-7.7); Neutrophils % 74.1 %; Nucleated Red Blood Cells % 0 %; Platelet Count 228 10^3/cmm (130-400); Red Blood Count 3.49 10^6/uL (4.1-5.3); Red Cell Distribution Width 13.5 % (12.1-15.1); White Blood Count 6.6 10^3/uL (4.0-10.0)
[2021-04-30] MEDS: piperacillin-tazobactam 3.375 GM in sodium chloride 0.9% (plus) 50 ML IV ×3 (06:06→22:39)
[2021-04-30 06:26] LABS: Anion Gap 13.8 (5-19); Blood Urea Nitrogen 5 mg/dL (6-20); Calcium 7.6 mg/dL (8.5-10.5); Carbon Dioxide 23 mmol/L (22-29); Chloride 105 mmol/L (98-107); Glomerular Filtration Rate 113.8 mL/min (90-130); Glucose 84 mg/dL (65-115); Osmolality Calculated 282 mOsm/kg (285-295); Potassium 3.8 mmol/L (3.5-5.1); Sodium 138 mmol/L (136-145)
[2021-04-30] MEDS: pantoprazole 40 mg SDV IVP (08:08)
[2021-04-30] MEDS: D5-NS 0.45% + KCL 20 mEq 20 MEQ/1,000 ML BAG 30 MEQ IV (08:19)
--- NOTE | 2021-04-30 11:30 | CT_ITS ---
WS: [id number] CT-GUIDED peritoneal abscess drainage catheter placed HISTORY: RIGHT lower quadrant abscess. DLP: 755.[address] scans at [facility] use at least one of these dose optimization techniques: automated e xposure control; mA and/or kV adjustment per patient size (includes targeted exams where dose is matc hed to clinical indication); or iterative reconstruction. Prior imaging studies are reviewed. History and physical areas reviewed. Procedure, risks and complic ations were explained to the patient. Consent is obtained. Conscious rotation was utilized. CT guidance used to localize the abscess in the RIGHT lower quadrant. Thick-walled abscess with the a bundant air. Skin is cleansed with ChloraPrep and anesthetized with 1% buffered lidocaine. Small derm atome is made. Using dilators axis is achieved into the abscess cavity over a guidewire. 10 [place] pi gtail catheter coiled within the abscess cavity. Purulent material was readily aspirated. Vacuum suct ion drainage bag connected. Approximately 50 cc of purulent material aspirated. Catheter secured to t he abdominal wall. No complications are evident.
[2021-04-30] MEDS: sodium chloride 0.9% 1,000 ML 30 ML IV (11:35)
[2021-04-30] MEDS: midazolam 1 mg/mL INJ 2 mL IVP ×2 (11:40→11:50)
[2021-04-30] MEDS: fentaNYL 50 mcg/mL INJ 2mL 25 MCG IVP ×4 (11:40→11:55)
[2021-04-30] MEDS: HYDROcodone-acetaminophen 5-325 mg Tablet 1 TAB PO ×2 (13:16→22:38)
--- NOTE | 2021-04-30 15:47 | PM.PN ---
Subjective Subjective: Patient is continued to be afebrile, had vomiting this morning, but otherwise feeling better now. She had a CT-guided drain placed Vitals/I&O/Wt Last Vital Signs Temp 97.4 F L 04/30/21 11:45 Pulse 83 04/30/21 12:35 Resp 19 H 04/30/21 12:35 BP 151/90 04/30/21 12:35 Pulse Ox 97 04/30/21 12:35 04/30/21 04/30/21 04/30/21 06:59 14:59 22:59 Intake Total 530 / 2482 1221 / 1221 Output Total 800 / 1650 Balance -270 / 832 1221 / 1221 Physical Exam Narrative: Abdomen: Soft, mildly tender, purulent fluid in the IR drain, nondistended Urinary Catheter Management: Celaya: Cath Placed During This Visit: yes, but has since been removed by the nurse Reason for Continuing Indwelling Catheter: Accurate Measurement of Urinary Output in Critically Ill Patients Urinary Catheter Date of Insertion: 04/25/21 Urinary Catheter Time of Insertion: 20:15 Date Urinary Catheter Removed: 04/28/21 Time Urinary Catheter Discontinued: 10:30 Data : 04/30/21 05:16 04/30/21 05:16 Micro: Microbiology 04/25/21 14:36 Blood Culture - Final Blood NO GROWTH AFTER 5 DAYS 04/25/21 14:39 Blood Culture - Final Blood NO GROWTH AFTER 5 DAYS A&P Assessment and plan (1) Intra-abdominal abscess: 35-year-old female presented with abdominal pain, nausea, vomiting 2 weeks after she had been treated with oral antibiotics with acute sigmoid diverticulitis. Patient has now developed multiple intra-abdominal abscesses likely secondary to perforated diverticulitis. She is hemodynamically stable without any evidence of peritonitis. Status post CT-guided drain placement GI soft diet Ambulate ad carol. 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
[2021-04-30] MEDS: sennosides-docusate Tablet 1 TAB PO (19:29)
[2021-05-01] VITALS: BP 144/85; PULSE 73; RESP 17; TEMP 36.7; O2SAT 95
[2021-05-01 00:53] VITALS: RESP 20
[2021-05-01] MEDS: morphine 4 mg/mL SDV 1 mL IVP (00:53)
[2021-05-01] MEDS: ondansetron 2 mg/ML SDV 2 mL 4 MG IVP (00:54)
[2021-05-01 02:00] VITALS: BP 132/78; PULSE 64; RESP 17; TEMP 36.9; O2SAT 94
[2021-05-01] MEDS: ketorolac 30 mg/mL INJ 15 MG IVP (02:15)
[2021-05-01] MEDS: piperacillin-tazobactam 3.375 GM in sodium chloride 0.9% (plus) 50 ML IV (05:58)
[2021-05-01 09:01] VITALS: BP 153/93; PULSE 74; RESP 20; TEMP 36.7; O2SAT 97
[2021-05-01] MEDS: HYDROcodone-acetaminophen 5-325 mg Tablet 1 TAB PO (09:05)
[2021-05-01] MEDS: sennosides-docusate Tablet 1 TAB PO (09:05)
--- NOTE | 2021-05-01 10:31 | PM.PN ---
Subjective Subjective: Patient has been afebrile overnight, no nausea or vomiting Medications: Reviewed: Yes Vitals/I&O/Wt Last Vital Signs Temp 98.1 F 05/01/21 09:01 Pulse 74 05/01/21 09:01 Resp 20 H 05/01/21 09:01 BP 153/93 05/01/21 09:01 Pulse Ox 97 05/01/21 09:01 04/30/21 05/01/21 05/01/21 22:59 06:59 14:59 Intake Total 154 / 2525 1150 / 2525 50 / 50 Output Total 100 / 940 840 / 940 Balance 54 / 1585 310 / 1585 50 / 50 Physical Exam Narrative: Abdomen: Soft, mildly tender, drain has purulent fluid Urinary Catheter Management: Celaya: Cath Placed During This Visit: yes, but has since been removed by the nurse Reason for Continuing Indwelling Catheter: Accurate Measurement of Urinary Output in Critically Ill Patients Urinary Catheter Date of Insertion: 04/25/21 Urinary Catheter Time of Insertion: 20:15 Date Urinary Catheter Removed: 04/28/21 Time Urinary Catheter Discontinued: 10:30 Data : 04/30/21 05:16 04/30/21 05:16 Micro: Microbiology 04/30/21 12:05 Gram Stain - Final Abdomen 04/25/21 14:36 Blood Culture - Final Blood NO GROWTH AFTER 5 DAYS 04/25/21 14:39 Blood Culture - Final Blood NO GROWTH AFTER 5 DAYS A&P Assessment and plan (1) Intra-abdominal abscess: 35-year-old female presented with abdominal pain, nausea, vomiting 2 weeks after she had been treated with oral antibiotics with acute sigmoid diverticulitis. Patient has now developed multiple intra-abdominal abscesses likely secondary to perforated diverticulitis. She is hemodynamically stable without any evidence of peritonitis. Status post CT-guided drain placement DC home today Status: Acute (2) Sepsis: CT shows a large RLQ abscess -status post drainage of abscess by CT guidance Status: Acute Qualifiers: Sepsis acute organ dysfunction status: without acute organ dysfunction Attestations Medical Necessity Statement*: DC home today Coding Level of Care Code Acute Water Fitness Instructor for [facility] Diagnoses Intra-abdominal abscess K65.1 Sepsis A41.9 Sepsis acute organ dysfunction status: without acute organ dysfunction
--- NOTE | 2021-05-01 10:32 | P.DS_ITS ---
Discharge Providers Date of Admission: 04/25/21 19:04 Date of Discharge: May 01, 2021 Attending Provider at Admission: Logan Mcdowell MD Attending Provider at Discharge: Logan Mcdowell MD Primary Care Provider: Ronda Sparks Diagnoses at Discharge Discharge Diagnosis (1) Intra-abdominal abscess: Status: Acute (2) Sepsis: Status: Resolved Qualifiers: Sepsis acute organ dysfunction status: without acute organ dysfunction Reason for Visit Reason for Visit: Intra-abdominal abscess Brief History: Nazia Bowling is a 35 year old female on whom I had previously performed a laparoscopic cholecystectomy few years ago.? Patient presented to the emergency room on 04/07/2021 and was treated with outpatient antibiotic therapy for sigmoid diverticulitis.? She had been doing well and had recovered with oral antibiotics but last night she had some chills and today she developed severe lower abdominal pain associated with nausea and vomiting that has been ongoing the whole day.? The pain is mainly in the lower abdomen, does not radiate, worse with physical activity.? She states that she has been having daily bowel movements.? Denies any difficulty with urination.? She states that she has been dealing with left lower quadrant pain for the last 6 months.? No prior colonoscopy.? She did have some loose stools intermittently since her cholecystectomy many years ago Hospital Course Hospital Course Patient is admitted to the hospital and started on IV antibiotics. The Celaya catheter was placed for monitoring of urine output and patient was closely monitored in the ICU. Her WBC slowly trended down from 19.9 on initial presentation and she became afebrile. Her diet was slowly advanced to a GI soft diet.CT abdomen pelvis was repeated on 04/30/2021 which showed that the intra- abdominal abscess had increased in size and she underwent CT-guided drain placement. Physical Exam Narrative: Abdomen: Soft, mildly tender, no guarding or rigidity, IR placed pigtail catheter in the right lower quadrant Urinary Catheter Management: Celaya: Cath Placed During This Visit: yes, but has since been removed by the nurse Reason for Continuing Indwelling Catheter: Accurate Measurement of Urinary Output in Critically Ill Patients Urinary Catheter Date of Insertion: 04/25/21 Urinary Catheter Time of Insertion: 20:15 Date Urinary Catheter Removed: 04/28/21 Time Urinary Catheter Discontinued: 10:30 Discharge Data Studies Completed and Pending Completed Studies During Hospitalization Category Date Time Status CT abdomen pelvis w con* [id number] Routine Cat Scan 04/29/21 07:[address] abdomen pelvis w con* [id number] Urgent Cat Scan 04/25/21 11:[address] drain peritoneum [id number] Routine Cat Scan 04/30/21 Completed Pending at discharge Category Date Time Status Abscess Culture and Gram Stain Routine Lab 04/30/21 12:05 Results Radiology Impressions Abdomen/Pelvis CT 04/29/21 07:00 IMPRESSION: 1. Abscess in the RIGHT abdomen extending into the lower quadrant with air- fluid level. This more distended today with increased air. This measures 6.5 x 6.1 x 12.7 cm AP by transverse by craniocaudal and appears to communicate with deeper abscesses in the pelvis. 2. Smaller peripheral enhancing abscesses in the pelvis are similar in appearance. Anterior pelvic abscess demonstrates more associated air today. 3. Diffuse thickening of the sigmoid colon compatible with diverticulitis appears improved. 4. Trace bilateral pleural fluid. 5. Mesenteric edema in the midabdomen and pelvis. Abscess Drainage CT 04/30/21 00:00 IMPRESSION: 1. Uncomplicated placement of 10 [place] drainage catheter in the large RIGHT lower quadrant abscess. 2. Specimen collected from the abscess cavity and sent for culture and sensitivity. Laboratory Results WBC 6.6 10^3/uL (4.0-10.0) 04/30/21 05:16 RBC 3.49 10^6/uL (4.1-5.3) L 04/30/21 05:16 Hgb 9.6 g/dL (11.5-15.3) L 04/30/21 05:16 Hct 30.6 % (37.0-47.0) L 04/30/21 05:16 MCV 87.7 fl (81-99) 04/30/21 05:16 MCH 27.5 pg (28.0-34.0) L 04/30/21 05:16 MCHC 31.4 g/dL (30.0-36.0) 04/30/21 05:16 RDW 13.5 % (12.1-15.1) 04/30/21 05:16 Plt Count 228 10^3/cmm (130-400) 04/30/21 05:16 MPV 10.3 fL (7.4-10.4) 04/30/21 05:16 Neut % (Auto) 74.1 % 04/30/21 05:16 Lymph % (Auto) 13.3 % 04/30/21 05:16 [place] % (Auto) 9.8 % 04/30/21 05:16 Eos % (Auto) 2.0 % 04/30/21 05:16 Baso % (Auto) 0.5 % 04/30/21 05:16 Neut # (Auto) 4.89 10^3/uL (1.8-7.7) 04/30/21 05:16 Lymph # (Auto) 0.9 10^3/uL (0.8-4.8) 04/30/21 05:16 [place] # (Auto) 0.7 10^3/uL (0.2-0.9) 04/30/21 05:16 Eos # (Auto) 0.1 10^3/uL (0.0-0.8) 04/30/21 05:16 Baso # (Auto) 0.0 10^3/uL (0.0-0.1) 04/30/21 05:16 Nucleated RBC % (auto) 0 % 04/30/21 05:16 Nucleated RBCs # 0.0 /100WBC 04/30/21 05:16 Sodium 138 mmol/L (136-145) 04/30/21 05:16 Potassium 3.8 mmol/L (3.5-5.1) 04/30/21 05:16 Chloride 105 mmol/L (98-107) 04/30/21 05:16 Carbon Dioxide 23 mmol/L (22-29) 04/30/21 05:16 Anion Gap 13.8 (5-19) 04/30/21 05:16 BUN 5 mg/dL (6-20) L 04/30/21 05:16 Creatinine 0.6 mg/dL (0.5-0.9) 04/30/21 05:16 GFR Calculation 113.8 mL/min (90-130) 04/30/21 05:16 Glucose 84 mg/dL (65-115) 04/30/21 05:16 Calculated Osmolality 282 mOsm/kg (285-295) L 04/30/21 05:16 Lactic Acid 1.8 mmol/L (0.5-2.2) 04/25/21 15:09 Lactic Acid (Sepsis) 1.7 mmol/L (0.5-2.2) 04/25/21 16:57 Calcium 7.6 mg/dL (8.5-10.5) L 04/30/21 05:16 Total Bilirubin 0.7 mg/dL (0.15-1.2) 04/25/21 11:22 AST 16 U/L (0-32) 04/25/21 11:22 ALT 14 U/L (0-33) 04/25/21 11:22 Alkaline Phosphatase 67 IU/L (35-105) 04/25/21 11:22 Total Protein 7.7 g/dL (6.6-8.7) 04/25/21 11:22 Albumin 4.2 g/dL (3.5-5.2) 04/25/21 11: Globulin 3.5 g/dL (1.3-4.6) 04/25/21 11:22 Lipase 28 U/L (13-60) 04/25/21 11:22 Urine Color Yellow (Yellow) 04/25/21 11:34 Urine Appearance Cloudy (CLEAR) 04/25/21 11:34 Urine pH 5 (5-7) 04/25/21 11:34 Ur Specific [place] 1.025 (1.005-1.030) 04/25/21 11:34 Urine Protein 1+ (Negative) H 04/25/21 11:34 Urine Glucose (UA) Norm (Normal) 04/25/21 11:34 Urine Ketones 1+ (Negative) H 04/25/21 11:34 Urine Blood Neg (Negative) 04/25/21 11:34 Urine Nitrate Negative (Negative) 04/25/21 11:34 Urine Bilirubin 1+ (Negative) H 04/25/21 11:34 Urine Urobilinogen 4 mg/dL (Negative) H 04/25/21 11:34 Ur Leukocyte Esterase Negative (Negative) 04/25/21 11:34 Urine RBC None /hpf (0-2) 04/25/21 11:34 Urine WBC None /hpf (0-5) 04/25/21 11:34 Ur Squamous Epith Cells 0-4 /hpf (0-5) H 04/25/21 11:34 Calcium Oxalate Crystal 10-15 /hpf H 04/25/21 11:34 Amorphous Sediment 4+ /hpf 04/25/21 11:34 Urine Bacteria 1+ /hpf (NONE) H 04/25/21 11:34 Urine HCG, Qual Negative (Negative) 04/25/21 11:34 Vitals Last Vital Signs Temp 98.1 F 05/01/21 09:01 Pulse 74 05/01/21 09:01 Resp 20 H 05/01/21 09:01 BP 153/93 05/01/21 09:01 Pulse Ox 97 05/01/21 09:01 Discharge Plan Discharge Patient Disposition: Home Condition: Stable Prescriptions: New hydrocodone-acetaminophen 5-325 mg tablet 1 tab PO Q6H PRN (Reason: pain) Qty: 20 0RF Zofran 4 mg tablet 4 mg PO Q6H PRN (Reason: nausea and vomiting) Qty: 20 0RF Senna with Docusate Sodium 8.6-50 mg tablet 1 tab-cap PO BID Qty: 30 0RF Flagyl 500 mg tablet 500 mg PO Q8H 8 Days Qty: 24 0RF levofloxacin 750 mg tablet 750 mg PO DAILY 8 Days Qty: 8 0RF ketorolac 10 mg tablet 10 mg PO TID PRN (Reason: pain) 7 Days Qty: 20 0RF Continued Excedrin Migraine 250-250-65 mg tablet 2 tab PO Q6H PRN (Reason: Migraine Headache) 0RF naproxen 500 mg tablet 500 mg PO BID PRN (Reason: Pain) 0RF hydrocodone-acetaminophen 5-325 mg tablet 1 tab PO Q6H PRN (Reason: pain) Qty: 15 0RF ondansetron HCl [Zofran] 4 mg tablet 4 mg PO Q6H PRN (Reason: nausea and vomiting) Qty: 20 0RF Discharge Orders: Discharge Order (Routine); Ordered 05/01/21 Ordered By: Logan Mcdowell Referrals: Logan Mcdowell MD [Physician] - 05/12/21 Ronda Sparks PA [Primary Care Provider] - 05/06/21 11:15 am Patient Instructions: Hydrocodone/Acetaminophen (By mouth), Metronidazole (By mouth), Ketorolac (By mouth), Ondansetron (By mouth), Levofloxacin (By mouth), Senna (By mouth), Sepsis (GEN), Abscess (GEN), Opioid Safety Activity Restrictions/Additional Instructions: Diet Advance to normal diet as tolerated, increase fluid intake as much as possible. Activity Avoid strenuous activity for 2 weeks but continue with daily activities including walking as tolerated. Do not lift more than 10 pounds for 2 weeks Return to work/school You can return to work/ school whenever you feel ready as long as you don?t have to lift more than 10 pounds at work. If you have paperwork that needs to be completed for time off from work, please contact my office Driving You can resume driving once you stop using narcotic pain medications, and transition to non-opioid pain medications like Tylenol, Motrin, Aleve, etc. Medications Pain Take opioid pain medications as prescribed and transition to non-opioid pain medications like Tylenol, Motrin, Aleve etc. over the next few days. Resume all home medications after surgery as per the medication reconciliation list Nausea Take nausea medications as needed and stay on a liquid bland diet until nausea resolves. Constipation Take stool softeners as prescribed. If you do not have a bowel movement in 3 days, please take an ouyj-jey-yrkabuf laxative like MiraLAX to address the constipation. Shower It is ok to shower but avoid getting the wound wet for 48 hours after surgery. Do not soak in bathtub, swimming pool or hot tub for 2 weeks. Drain care Strip drain 3-4 times a day, change dressings around the drain as needed. Contact physician Call the office at [phone] during office hours or go the Emergency Room ?Fever to 100.4 or greater ?Shaking chills ?Pain that increases over time ?Redness, warmth, or pus draining from incision sites ?Persistent nausea or inability to take in liquids Discharge Attestations Time Spent in Discharge Care*: greater than 30 min Quality Metrics Clinical Quality Measures [ No reported AMI, CVA or VTE this stay] Coding Level of Care Code Acute Chg FW DC note Diagnoses Intra-abdominal abscess K65.1 Sepsis A41.9 Sepsis acute organ dysfunction status: without acute organ dysfunction
== END 2021-05-01 12:00 | disposition designated cancer center or children's hospital (05) | DRG 871 ==
LOC: ER 18:21 → ICU 19:06 → MEDSURG 04-29 14:19
PROVIDERS: Physician Assistant; Radiology Diagnostic Radiology; Admitting Provider Surgery; Emergency Provider Emergency Medicine; PCP Physician Assistant; Visit Provider Surgery
PROC: 0W9G30Z Drainage of Peritoneal Cavity with Drainage Device, Percutaneous Approach (ICD-10-PCS; CPT 75989; principal; 2021-04-30 11:00)
DX: A41.9 Sepsis, unspecified organism (principal); K65.1 Peritoneal abscess; K57.20 Diverticulitis of large intestine with perforation and abscess without bleeding; F17.200 Nicotine dependence, unspecified, uncomplicated; R11.2 Nausea with vomiting, unspecified; Z90.49 Acquired absence of other specified parts of digestive tract
CPT/HCPCS: 36415; 49406; 51702; 74177; 75989; 80048; 80053; 81001; 81025; 83605; 83690; 85025; 87040; 87070; 87075; 87077; 87186; 87205; 96361; 96365; 96372; 96374; 96375; 96376; 99285; C9113; J1170; J1650; J1885; J2250; J2270; J2405; J2543; J2765; J3010; J7030; Q9967

== ENCOUNTER 2021-05-13 10:20 | Outpatient (CLI) | payer MEDICAID, SELFPAY ==
[2021-05-13 11:04] LABS: Basophils # 0.1 10^3/uL (0.0-0.1); Basophils % 0.6 %; Eosinophils # 0.1 10^3/uL (0.0-0.8); Eosinophils % 1.2 %; Hematocrit 37.7 % (37.0-47.0); Hemoglobin 11.7 g/dL (11.5-15.3); Lymphocytes # 1.5 10^3/uL (0.8-4.8); Lymphocytes % 15.8 %; Mean Corpuscular Hemoglobin 27.7 pg (28.0-34.0); Mean Corpuscular Volume 89.1 fl (81-99); Mean Platelet Volume 9.5 fL (7.4-10.4); Monocytes # 0.5 10^3/uL (0.2-0.9); Monocytes % 5.8 %; Neutrophils # 7.02 10^3/uL (1.8-7.7); Neutrophils % 75.8 %; Nucleated Red Blood Cells % 0 %; Platelet Count 389 10^3/cmm (130-400); Red Blood Count 4.23 10^6/uL (4.1-5.3); Red Cell Distribution Width 14.3 % (12.1-15.1); White Blood Count 9.3 10^3/uL (4.0-10.0)
== END 2021-05-13 10:21 | disposition home or self-care (01) ==
LOC: LAB 10:24
PROVIDERS: PCP Physician Assistant; Visit Provider Surgery
DX: K65.1 Peritoneal abscess (principal)
CPT/HCPCS: 36415; 85025

== ENCOUNTER 2021-05-27 15:02 | Outpatient (CLI) | payer MEDICAID, SELFPAY ==
--- NOTE | 2021-05-27 15:30 | CTR_ITS ---
PROCEDURE INFORMATION: Exam: CT Abdomen And Pelvis With Contrast Exam date and time: 05/27/2021 3:30 PM Age: 35 years old Clinical indication: Condition or disease; Abscess location: Peritoneal abscess; Prior surgery; Surgery type: --gb, hyst, ; patient HX: Recent ascending colon perf with drain. (drain removed 2 weeks ago). Continued rlq pain and fever; Additional info: K65.1 - peritoneal abscess, iv and oral TECHNIQUE: Imaging protocol: Computed tomography of the abdomen and pelvis with contrast. Radiation optimization: All CT scans at this facility use at least one of these dose optimization techniques: automated exposure control; mA and/or kV adjustment per patient size (includes targeted exams where dose is matched to clinical indication); or iterative reconstruction. Contrast material: OMNI 300; Contrast volume: 95 ml; Contrast route: INTRAVENOUS (IV); COMPARISON: CT abdomen pelvis w con* [id number] 04/29/2021 9:32 AM RADIATION DOSE METRICS: Total DLP (mGy-cm): 1163.94 FINDINGS: Liver: Normal. No mass. Gallbladder and bile ducts: Cholecystectomy. Pancreas: Normal. No ductal dilation. Spleen: Normal. No splenomegaly. Adrenal glands: Normal. No mass. Kidneys and ureters: Normal. No hydronephrosis. Stomach and bowel: Mid sigmoid colon wall thickening with surrounding edema in the area of several diverticula, perhaps reflecting a diverticulitis. Appendix: Right lower quadrant 36 x 9.7 mm somewhat complex tubular appearing structure is seen somewhat in the region of the previously seen abscess, may reflect a small residual abscess in the appropriate clinical setting. Hydrosalpinx may also be a consideration. Previously seen larger abscess in this region has largely resolved. Finding is best seen on series 7, image 40. The appendix is seen to be separate from this structure and contains air without findings of appendicitis. Intraperitoneal space: Unremarkable. No free air. No significant fluid collection. Vasculature: Unremarkable. No abdominal aortic aneurysm. Lymph nodes: Unremarkable. No enlarged lymph nodes. Urinary bladder: Unremarkable as visualized. Reproductive: Right adnexal region 2.2 cm thin walled peripherally enhancing cyst, new compared to prior exam, may be follicular in nature. Left ovary thin walled 2.7 cm cystic structure perhaps with a solid mural component, somewhat similar to prior exam, ultrasound could further evaluate this given the apparent mural component. Bones/joints: Unremarkable. No acute fracture. Soft tissues: Unremarkable. CT/CT abdomen pelvis w con* [id number] IMPRESSION: 1. Right lower quadrant 36 x 9.7 mm somewhat complex tubular appearing structure is seen somewhat in the region of the previously seen abscess, may reflect a small residual abscess in the appropriate clinical setting. Hydrosalpinx may also be a consideration. Previously seen larger abscess in this region has largely resolved. Finding is best seen on series 7, image 40. The appendix is seen to be separate from this structure and contains air without findings of appendicitis. 2. Mid sigmoid colon wall thickening with surrounding edema in the area of several diverticula, perhaps reflecting a diverticulitis. 3. Cholecystectomy. 4. Right adnexal region 2.2 cm thin walled peripherally enhancing cyst, new compared to prior exam, may be follicular in nature. 5. Left ovary thin walled 2.7 cm cystic structure perhaps with a solid mural component, somewhat similar to prior exam, ultrasound could further evaluate this given the apparent mural component.
[2021-05-27] MEDS: iohexol 300 mg/mL 100 mL Btl IV (16:43)
[2021-05-27] MEDS: iohexol 300 mg/mL 50 mL Btl PO (16:43)
== END 2021-05-27 15:03 | disposition home or self-care (01) ==
PROVIDERS: PCP Physician Assistant; Visit Provider Surgery
DX: K65.1 Peritoneal abscess (principal); Z90.49 Acquired absence of other specified parts of digestive tract
CPT/HCPCS: 74177

== ENCOUNTER → 2021-07-08 08:39 | Outpatient (BNVA) | payer MEDICAID, SELFPAY | PROVIDERS: PCP Physician Assistant; Visit Provider Surgery | DX: K65.1 Peritoneal abscess (principal); K29.70 Gastritis, unspecified, without bleeding | CPT/HCPCS: 99214 ==

== ENCOUNTER 2021-08-06 05:50 | Day surgery (SDC) | payer MEDICAID, SELFPAY ==
[2021-08-04 10:16] VITALS: BMI 34.7
[2021-08-06 06:12] VITALS: BP 129/84; PULSE 67; RESP 18; TEMP 36.2; O2SAT 98
[2021-08-06] MEDS: sodium chloride 0.9% 1,000 ML 30 ML IV (06:21)
--- NOTE | 2021-08-06 06:47 | W.PM.OPSFHP ---
Same Day Surgery H&P Indication for Procedure/HPI DATE OF PROCEDURE: August 06, 2021 CHIEF COMPLAINT/INDICATIONFOR SURGICAL PROCEDURE: Colonoscopy PREOP DIAGNOSIS: diagnostic PLANNED PROCEDURE: Operation Date: 08/06/21 07:00 Proposed Procedures p Colonoscopy 81173/k57.92(Not Applicable) - Logan Mcdowell MD Medications/Allergies* Home Medications Medication Instructions Recorded Confirmed Type repqzds-fbelbouuycwrx-cntynkdv 250 2 tab PO Q6H PRN 04/04/19 08/06/21 History mg-250 mg-65 mg tablet (Excedrin Migraine) Allergies/Adverse Reactions Allergy/AdvReac Type Severity Reaction Status Date / Time No Known Allergies Allergy Verified 08/06/21 06:08 Current Medications: Generic Name Dose Route Start Last Admin Trade Name Freq PRN Reason Stop Dose Admin Sodium Chloride 1,000 mls @ 30 mls/hr 08/06/21 06:00 08/06/21 06:21 Sodium Chloride 0.9% IV 08/07/21 05:59 30 mls/hr .Q24H JEFFERY Administration Pertinent History/Comorbid Conditions* Medical History (Updated 05/02/21 @ 00:01 by ) Alcohol use disorder History of persistent depressive disorder Insomnia disorder, with non-sleep disorder mental comorbidity, recurrent MDD (major depressive disorder), recurrent, in partial remission Methamphetamine use disorder, mild Surgical History (Updated 04/25/21 @ 16:32 by Logan Mcdowell MD) H/O tubal ligation History of hysterectomy Hx of cholecystectomy S/P tonsillectomy and adenoidectomy Social History Smoking and tobacco status: former smoker Pertinent Exam Findings alert, oriented x 3 and regular rate & rhythm Recommendations Surgery/Procedure today Coding Level of Care Code Acute Photograph Inspector for Lilig Alvaro
--- NOTE | 2021-08-06 06:55 | P.ANESASSM_ITS ---
Pre-Anesthetic Assessment Height/Weight: Height 1.57 m Weight 86.183 kg Temp Pulse Resp BP Pulse Ox 97.1 F L 67 18 129/84 98 08/06/21 06:12 08/06/21 06:12 08/06/21 06:12 08/06/21 06:12 08/06/21 06:12 Preop Diagnosis: diagnostic Operation Date: 08/06/21 07:00 Proposed Procedures p Colonoscopy 56789/k57.92(Not Applicable) - Logan Mcdowell MD Familial anesthetic complications: none Was Beta Erlin taken within 24 hours: N/A Was Clonidine taken within 24 hours: N/A Last intake: Intake Last Liquid Date 08/05/21 Last Liquid Time 23:30 Last Solid Date 08/04/21 Last Solid Time 23:30 Social Alcohol and Tobacco ETOH use disorder, hx of drug use Exam alert, oriented x 3, clear to auscultation bilaterally and regular rate & rhythm Airway Submandibular: within normal limits Cervical ROM: within normal limits Mallampati: Class II Dentition: chipped Pulmonary None reported CV/HEM None reported None reported Hepatic None reported GI Gastroesophageal Reflux Disease [facility] [place] None reported Neuropsych Mood disorder, MDD, ETOH and methamphetamine use disorder Anesthetic Plan ASA status: 2 Anesthesia: Anesthesia Evaluation, General and MAC Other: I discussed with the patient risks, goals, and benefits of MAC and general anesthesia. We discussed spectrum of MAC anesthesia including conversion to general as well as possibility of recall of intraoperative stimuli including discomfort/pain. Patient agrees to proceed with MAC. Risk of > 500 ml blood loss (7ml/kg in children): No Medications/Allergies Home Medications Medication Instructions Recorded Confirmed Last Taken Type dzcznhz-llxmwgfxdyleg-vznlkxzv 250 2 tab PO Q6H PRN 04/04/19 08/06/21 07/28/21 History mg-250 mg-65 mg tablet (Excedrin Migraine) ondansetron HCl 4 mg tablet 4 mg PO Q6H PRN #20 tab 05/01/21 08/06/21 07/22/21 Rx (Zofran) sennosides 8.6 mg-docusate sodium 1 tab-cap PO BID #30 tab 05/01/21 08/06/21 Unknown Rx 50 mg tablet (Senna with Docusate Sodium) erythromycin 500 mg tablet 500 mg PO ONCE #3 tab 07/08/21 08/06/21 Unknown Rx neomycin 500 mg tablet 1 g PO ONCE #6 tab 07/08/21 08/06/21 07/22/21 Rx omeprazole 40 mg capsule,delayed 40 mg PO DAILY 56 Days cap 08/06/21 Unknown Rx release Allergies Allergy/AdvReac Type Severity Reaction Status Date / Time No Known Allergies Allergy Verified 08/06/21 06:08 Current Medications Generic Name Dose Route Start Last Admin Trade Name Freq PRN Reason Stop Dose Admin Sodium Chloride 1,000 mls @ 30 mls/hr 08/06/21 06:00 08/06/21 06:21 Sodium Chloride 0.9% IV 08/07/21 05:59 30 mls/hr .Q24H JEFFERY Administration PFSH Anesthesia Medical History Alcohol use disorder History of persistent depressive disorder Insomnia disorder, with non-sleep disorder mental comorbidity, recurrent MDD (major depressive disorder), recurrent, in partial remission Methamphetamine use disorder, mild Surgical History (Updated 08/06/21 @ 07:25 by Logan Mcdowell MD) H/O esophagogastroduodenoscopy (08/06/21) H/O tubal ligation History of hysterectomy Hx of cholecystectomy S/P tonsillectomy and adenoidectomy Status post colonoscopy (08/06/21) Social History Smoking and tobacco status: former smoker Female Reproductive History Date of last menstrual period: 07/22/16 Data Anesthesia Cardiac Studies: No Data to Display
[2021-08-06 07:25] VITALS: BP 160/90; PULSE 77; RESP 18; TEMP 36.5; O2SAT 99
[2021-08-06 07:49] VITALS: BP 140/100; PULSE 63; RESP 18; TEMP 36.3; O2SAT 100
--- NOTE | 2021-08-06 09:27 | ANE.PACU2 ---
Inpatient post-anesthesia follow up: Airway intact: Yes Vital signs: Temperature 97.4 F Pulse Rate 63 Respiratory Rate 18 Blood Pressure 140/100 Pulse Oximetry 100 Oxygen Delivery Me thod Room Air Oxygen Flow Rate Fraction of Inspir ed Oxygen Hydration adequate: Yes Nausea and vomiting: No Pain level: 1 Mental status: Baseline
== END 2021-08-06 08:01 | disposition home or self-care (01) ==
PROVIDERS: PCP Physician Assistant; Visit Provider Surgery
PROC: 0DJD8ZZ Inspection of Lower Intestinal Tract, Via Natural or Artificial Opening Endoscopic (ICD-10-PCS; CPT 45378; principal; 2021-08-06 07:00)
PROC: 0DJ08ZZ Inspection of Upper Intestinal Tract, Via Natural or Artificial Opening Endoscopic (ICD-10-PCS; CPT 43235; 2021-08-06 07:00)
DX: K57.92 Diverticulitis of intestine, part unspecified, without perforation or abscess without bleeding (principal); Z87.891 Personal history of nicotine dependence; K29.70 Gastritis, unspecified, without bleeding; K57.30 Diverticulosis of large intestine without perforation or abscess without bleeding; K21.9 Gastro-esophageal reflux disease without esophagitis
CPT/HCPCS: 43239; 45378; 88305; J2704; J3490; J7030

== ENCOUNTER 2021-08-07 15:33 | Inpatient (IN) | payer MEDICAID, SELFPAY ==
[2021-08-05 13:55] VITALS: BMI 34.7
[2021-08-07] VITALS (25 sets, daily range): BP systolic 101–157; BP diastolic 49–102; PULSE 50–115; RESP 12–27; TEMP 36.6–37.9; O2SAT 92–100
--- NOTE | 2021-08-07 07:34 | P.HP_ITS ---
Same Day Surgery H&P Indication for Procedure/HPI DATE OF PROCEDURE: August 07, 2021 CHIEF COMPLAINT/INDICATIONFOR SURGICAL PROCEDURE: Sigmoid colectomy PREOP DIAGNOSIS: diagnostic PLANNED PROCEDURE: Operation Date: 08/07/21 10:05 Proposed Procedures p Laparoscopic Sigmoidectomy 55447/k57.92(Not Applicable) - Logan Mcdowell MD Medications/Allergies* Home Medications Medication Instructions Recorded Confirmed Type ghfjzyk-qdutwbeqlhkkn-wxxlecha 250 2 tab PO Q6H PRN 04/04/19 08/06/21 History mg-250 mg-65 mg tablet (Excedrin Migraine) Allergies/Adverse Reactions Allergy/AdvReac Type Severity Reaction Status Date / Time No Known Allergies Allergy Verified 08/06/21 06:08 Pertinent History/Comorbid Conditions* Medical History (Updated 05/02/21 @ 00:01 by ) Alcohol use disorder History of persistent depressive disorder Insomnia disorder, with non-sleep disorder mental comorbidity, recurrent MDD (major depressive disorder), recurrent, in partial remission Methamphetamine use disorder, mild Surgical History (Updated 08/06/21 @ 07:25 by Logan Mcdowell MD) H/O esophagogastroduodenoscopy (08/06/21) H/O tubal ligation History of hysterectomy Hx of cholecystectomy S/P tonsillectomy and adenoidectomy Status post colonoscopy (08/06/21) Social History Smoking and tobacco status: former smoker Pertinent Exam Findings alert, oriented x 3 and regular rate & rhythm Recommendations Surgery/Procedure today Coding Level of Care Code Acute Elementary Librarian for Shahriar John
--- NOTE | 2021-08-07 08:23 | ANES.PREANE2 ---
Pre-Anesthetic Assessment Height/Weight: Height 1.57 m Weight 86.183 kg Preop Diagnosis: Recurrent diverticulitis Operation Date: 08/07/21 10:05 Proposed Procedures p Laparoscopic Sigmoidectomy 05562/k57.92(Not Applicable) - Logan Mcdowell MD Familial anesthetic complications: None Was Beta Erlin taken within 24 hours: N/A Was Clonidine taken within 24 hours: N/A Last intake: > 8 hrs Social Alcohol and Tobacco Hx methamphetamine use Exam alert, oriented x 3, clear to auscultation bilaterally and regular rate & rhythm Airway Mallampati: Class II Dentition: chipped Pulmonary None reported CV/HEM None reported None reported Hepatic None reported GI Gastroesophageal Reflux Disease (severe, but not currently experiencing symptoms in pre-op) Metabolic Morbid Obesity Musc/skel None reported Neuropsych None reported Anesthetic Plan ASA status: 2 Anesthesia: General Risk of > 500 ml blood loss (7ml/kg in children): No Medications/Allergies Home Medications Medication Instructions Recorded Confirmed Last Taken Type blxmmfz-rnjsoepobutmj-xahubjli 250 2 tab PO Q6H PRN 04/04/19 08/06/21 07/28/21 History mg-250 mg-65 mg tablet (Excedrin Migraine) ondansetron HCl 4 mg tablet 4 mg PO Q6H PRN #20 tab 05/01/21 08/06/21 07/22/21 Rx (Zofran) sennosides 8.6 mg-docusate sodium 1 tab-cap PO BID #30 tab 05/01/21 08/06/21 Unknown Rx 50 mg tablet (Senna with Docusate Sodium) erythromycin 500 mg tablet 500 mg PO ONCE #3 tab 07/08/21 08/06/21 Unknown Rx neomycin 500 mg tablet 1 g PO ONCE #6 tab 07/08/21 08/06/21 07/22/21 Rx omeprazole 40 mg capsule,delayed 40 mg PO DAILY 56 Days cap 08/06/21 Unknown Rx release Allergies Allergy/AdvReac Type Severity Reaction Status Date / Time No Known Allergies Allergy Verified 08/06/21 06:08 [facility] Anesthesia Medical History Alcohol use disorder History of persistent depressive disorder Insomnia disorder, with non-sleep disorder mental comorbidity, recurrent MDD (major depressive disorder), recurrent, in partial remission Methamphetamine use disorder, mild Surgical History (Updated 08/06/21 @ 07:25 by Logan Mcdowell MD) H/O esophagogastroduodenoscopy (08/06/21) H/O tubal ligation History of hysterectomy Hx of cholecystectomy S/P tonsillectomy and adenoidectomy Status post colonoscopy (08/06/21) Social History Smoking and tobacco status: former smoker Female Reproductive History Date of last menstrual period: 07/22/16 Data Anesthesia Cardiac Studies: No Data to Display
[2021-08-07] MEDS: scopolamine 1.5 Patch 1 PATCH TRANSDERMA (09:28)
--- NOTE | 2021-08-07 11:41 | PC.NURSE ---
colonoscope [id number] [id number] Used for sigmoidoscopy with single use adapter
--- NOTE | 2021-08-07 11:44 | PC.NURSE ---
spoke with patient's mom
--- NOTE | 2021-08-07 12:48 | PC.NURSE ---
spoke with patient's mom and gave her an update. Dr Spence in to assist Dr Mcdowell
--- NOTE | 2021-08-07 13:45 | PC.NURSE ---
spoke with patient's mom and gave her an update
--- NOTE | 2021-08-07 14:47 | PC.NURSE ---
spoke with patient's mother in person and gave her an update, of plan to redo the anastamosis site due to discoloration.
[2021-08-07] MEDS: piperacillin-tazobactam 3.375 GM in sodium chloride 0.9% (plus) 50 ML IV (15:30)
--- NOTE | 2021-08-07 16:26 | P.OP_ITS ---
Operative Report Date of procedure: August 07, 2021 Pre-op diagnosis: Perforated sigmoid diverticulitis status post CT-guided drainage of intra- abdominal abscess 2.2021 Post-op diagnosis: Small bowel loops adherent to the sigmoid colon as well as the dome of the Urinary bladder 2 cm segment of ischemic descending colon after EEA anastomosis, anastomosis had to be revised Procedure done: 1. Laparoscopic sigmoid colectomy with 25mm EEA anastomosis 2. Laparoscopic lysis of adhesions for 30 minutes 3. Laparoscopic takedown of splenic flexure 4. Flexible sigmoidoscopy Specimens removed/disposition: 1. Sigmoid colon 2. Proximal and distal donuts from EEA anastomosis 3. Ischemic descending colon with anastomosis Surgeon: Logan Mcdowell Video Game Tester: Lukas Mancilla Anesthesia: General Estimated blood loss (mL): 100 IV fluids (mL): 3,300 Urine output (mL): 550 Condition: stable Disposition: PACU Procedure: The patient was taken to the operating room, intubated under general anesthesia after IV antibiotic had been administered. The patient was placed in modified lithotomy position with shoulder support and the Celaya catheter was placed. The rectum was irrigated with diluted Betadine using red rubber catheter. The abdomen and the perineum was prepped and draped in a sterile manner. Using a 15 blade, a midline infraumbilical incision was made and using open Miguel technique the peritoneal cavity was entered, 12 mm port was placed and 15 mm of pneumoperitoneum was created. A 10 mm 30? scope was then introduced. 5 mm ports were placed in the left lower quadrant and in the right upper quadrant under direct visualization in the midclavicular line and and a 12 mm port was placed in the right lower quadrant. Examination of the colon revealed small bowel loops adherent to the dome of the bladder at the site of the prior abscess which was drained under CT guidance. The patient was placed in steep Trendelenburg position and rotated to the right in order to place a small bowel loops in the right upper quadrant. The transverse colon was retracted superiorly. Using laparoscopic scissors lysis of additions was performed for 30 minutes until the densely adherent small bowel loops to the dome of the bladder as well as the sigmoid colon were taken down. There was no enterotomies noted. The inferior mesenteric artery was identified near its takeoff, the peritoneum opened and dissection was carried posterior to the artery until the ureter was identified. A medial to lateral dissection of the sigmoid mesocolon was performed. There were adhesions of the sigmoid colon to the abdominal wall which were taken down. The sigmoid mesocolon was divided using LigaSure down to the proximal rectum. 2 loads of 45 mm blue load Endo BINA stapler was introduced through the right lower quadrant port to divide the rectum distally. At this point it appeared that the descending colon reached up to the rectum and the midline umbilical incision was extended up, the pneumoperitoneum was released and a wound protector was placed and the divided sigmoid colon was exteriorized. A noncrushing bowel clamps were placed on the descending colon and an Autosuture pursestring was placed and the colon was divided and the specimen removed from the operating field. Serial anal dilators were used and it was decided to proceed with the 25 mm EEA stapler. The anvil of the EEA stapler was introduced into the descending colon and tied down. The colon was introduced into the peritoneal cavity and the pneumoperitoneum was recreated. Dr. Cunha joined me at this part of the case to help with the anastomosis. The anus was digitally dilated and the EEA stapler was introduced through the anal canal and the trocar passed through the previously created staple line and attached to the anvil after ensuring that there was no twisting of the mesentery. The EEA stapler was fired to create the stapled 25 mm end-to-end anastomosis and 2 intact doughnuts were retrieved which were sent as proximal margin and distal margin. A colonoscope was introduced and passed beyond the anastomosis after submerging the anastomosis under saline in the pelvis. The air leak test was negative. The descending colon at the anastomosis appeared to have bluish discoloration raising concerns for ischemia. We observe this area for over 10 minutes and there was no significant improvement and therefore I chose to redo the anastomosis. The rectum was divided using 2 loads of 45 mm blue load BINA stapler just distal to the EEA staple line and the descending colon including the anastomosis was exteriorized.A noncrushing bowel clamps were placed on the descending colon and an Autosuture pursestring was placed and the colon was divided and the specimen removed from the operating field. Serial anal dilators were used and it was decided to proceed with the 25 mm EEA stapler. The anvil of the EEA stapler was introduced into the descending colon and tied down. The colon was introduced into the peritoneal cavity and the pneumoperitoneum was recreated. The EEA stapler was introduced through the anal canal and the trocar passed through the previously created staple line and attached to the anvil after ensuring that there was no twisting of the mesentery. The EEA stapler was fired to create the stapled 25 mm end-to-end anastomosis and 2 intact doughnuts were retrieved which were sent as proximal margin and distal margin. The air leak test was negative and the tissue near the anastomosis appeared viable. There was no significant bleeding noted from the staple line. The colonoscope was withdrawn. All 4 ports were removed under direct visualization and the fascia the midline was closed using #1 loop PDS. The fascia of the right lower quadrant port was closed using [id number] 0 Vicryl suture. The subcutaneous tissue was approximated using 3-0 Vicryl suture and skin was closed using running subcuticular 4-0 Monocryl suture and mamie. The patient was subsequently extubated and transferred to recovery room with a Celaya catheter in place. Related Problem List Diagnoses (1) S/P laparoscopic-assisted sigmoidectomy:
[2021-08-07] MEDS: fentaNYL 50 mcg/mL INJ 2mL 100 MCG (16:35)
[2021-08-07] MEDS: fentaNYL 50 mcg/mL INJ 2mL IVP (16:40)
[2021-08-07] MEDS: diphenhydrAMINE 50 mg/mL SDV 1mL 12.5 MG IVP (17:15)
[2021-08-07] MEDS: morphine 4 mg/mL SDV 1 mL 3 MG IVP ×4 (17:41→23:32)
[2021-08-07] MEDS: D5-NS 0.45% + KCL 20 mEq 20 MEQ/1,000 ML BAG 100 MEQ IV (17:43)
[2021-08-07] MEDS: sennosides-docusate Tablet 1 TAB PO (18:15)
[2021-08-07 22:39] LABS: Basophils % 0.1 %; Hematocrit 46.1 % (37.0-47.0); Lymphocytes # 0.6 10^3/uL (0.8-4.8); Lymphocytes % 4.1 %; Mean Corpuscular HGB Conc 30.4 g/dL (30.0-36.0); Mean Corpuscular Hemoglobin 27.8 pg (28.0-34.0); Mean Corpuscular Volume 91.7 fl (81-99); Mean Platelet Volume 10.4 fL (7.4-10.4); Monocytes # 0.4 10^3/uL (0.2-0.9); Monocytes % 2.9 %; Neutrophils # 12.47 10^3/uL (1.8-7.7); Neutrophils % 92.5 %; Nucleated Red Blood Cells % 0 %; Platelet Count 215 10^3/cmm (130-400); Red Blood Count 5.03 10^6/uL (4.1-5.3); White Blood Count 13.5 10^3/uL (4.0-10.0)
[2021-08-07 22:47] LABS: Alanine Aminotransferase 18 U/L (0-33); Alkaline Phosphatase 65 IU/L (35-105); Anion Gap 16.3 (5-19); Aspartate Amino Transferase 19 U/L (0-32); Blood Urea Nitrogen 5 mg/dL (6-20); Calcium 8.2 mg/dL (8.5-10.5); Carbon Dioxide 18 mmol/L (22-29); Chloride 104 mmol/L (98-107); Globulin 2.6 g/dL (1.3-4.6); Glomerular Filtration Rate 113.1 mL/min (90-130); Glucose 179 mg/dL (65-115); Osmolality Calculated 280 mOsm/kg (285-295); Potassium 4.3 mmol/L (3.5-5.1); Sodium 134 mmol/L (136-145); Total Bilirubin 0.5 mg/dL (0.15-1.2); Total Protein 6.6 g/dL (6.6-8.7)
[2021-08-08] VITALS (14 sets, daily range): BP systolic 120–155; BP diastolic 69–99; PULSE 53–88; RESP 14–20; TEMP 36.6–37.1; O2SAT 96–98
[2021-08-08] MEDS: HYDROcodone-acetaminophen 5-325 mg Tablet 1 TAB PO ×2 (01:17→05:23)
[2021-08-08] MEDS: piperacillin-tazobactam 3.375 GM in sodium chloride 0.9% (plus) 50 ML IV ×3 (01:17→16:48)
[2021-08-08] MEDS: morphine 4 mg/mL SDV 1 mL 3 MG IVP ×9 (03:02→23:01)
[2021-08-08] MEDS: enoxaparin 40 mg/0.4 mL Syringe SUBCUT (04:16)
[2021-08-08 04:37] LABS: Basophils % 0.1 %; Hematocrit 42.2 % (37.0-47.0); Hemoglobin 13.4 g/dL (11.5-15.3); Lymphocytes # 0.9 10^3/uL (0.8-4.8); Lymphocytes % 6.3 %; Mean Corpuscular HGB Conc 31.8 g/dL (30.0-36.0); Mean Corpuscular Hemoglobin 27.9 pg (28.0-34.0); Mean Corpuscular Volume 87.7 fl (81-99); Mean Platelet Volume 10.4 fL (7.4-10.4); Monocytes # 0.9 10^3/uL (0.2-0.9); Monocytes % 6.7 %; Neutrophils # 11.71 10^3/uL (1.8-7.7); Neutrophils % 86.5 %; Nucleated Red Blood Cells % 0 %; Platelet Count 228 10^3/cmm (130-400); Red Blood Count 4.81 10^6/uL (4.1-5.3); Red Cell Distribution Width 13.8 % (12.1-15.1); White Blood Count 13.5 10^3/uL (4.0-10.0)
[2021-08-08 04:59] LABS: Anion Gap 16.1 (5-19); Blood Urea Nitrogen 6 mg/dL (6-20); Calcium 8.6 mg/dL (8.5-10.5); Carbon Dioxide 20 mmol/L (22-29); Chloride 104 mmol/L (98-107); Glomerular Filtration Rate 94.7 mL/min (90-130); Glucose 125 mg/dL (65-115); Osmolality Calculated 281 mOsm/kg (285-295); Potassium 4.1 mmol/L (3.5-5.1); Sodium 136 mmol/L (136-145)
[2021-08-08] MEDS: D5-NS 0.45% + KCL 20 mEq 20 MEQ/1,000 ML BAG 100 MEQ IV (06:21)
[2021-08-08] MEDS: sennosides-docusate Tablet 1 TAB PO ×2 (08:30→16:48)
--- NOTE | 2021-08-08 09:52 | PC.CHAP ---
Pastoral Care Encounter/Spiritual Assessment Type of Contact [] Declined remedy developer visit [] Patient/Family/Request visit [] Outpatient visit [] Follow-up visit [] Physician referral [] Code/Alert [x] Routine visit [] Staff referral [] Actively dying [] Patient sleeping [] Family support [] [] Out of room [] Palliative care [] [] Receiving care in room [] Pre-surgical visit [] Trauma [] Long length of stay [] ICU visit [] Other: Relational/Emotional Strength x[] Patient feels connected with others/family/visitors/staff [] Distress [] Loneliness/isolation [] Abandonment Spirituality of Patient x[x] Person of Bertha [] Attends Synagogue of their Bertha x Believes in Prayer [] Reads Bible or Judaism materials [] There are Spiritual issues to be addressed Manager Grant Interventions [x] Prayer [x] Active listening [x] Non-anxious presence [xa] Spiritual/emotional support [] Crisis/trauma care [] Spiritual counseling [] Bereavement support [] Provided bereavement packet [] Provided Bible/devotional materials [] Provided toy/stuffed animal, coloring book to patient or family member [] Provided Communion [] Anointing/[place] [] Salvation [X] Completed spiritual assessment [] Other: Impact on Illness or Injury [] Angry [] Fearful [] Anxious [] Often cries [] Exhaustion [] Unable to work [] Unable to attend religious [] Unable to walk/stand [] Unable to read [] Unable to drive [] Unable to eat/drink [] Unable to sleep [] Unable to be with family [] Patient intubated [] Other: Summary Time spent with patient 10 MIN
--- NOTE | 2021-08-08 12:02 | PC.NURSE ---
Urinary catheter removed at 1201 by me. 825 mL in bag. Patient tolerated well.
[2021-08-08] MEDS: D5-NS 0.45% + KCL 20 mEq 20 MEQ/1,000 ML BAG 30 MEQ IV (16:48)
--- NOTE | 2021-08-08 17:10 | P.PN_ITS ---
Subjective Subjective: Patient has been doing well, ambulating after Celaya was removed. Pain is controlled with morphine, denies any nausea, vomiting flatus or BM Medications: Reviewed: Yes Vitals/I&O/Wt Last Vital Signs Temp 98.1 F 08/08/21 16:02 Pulse 58 L 08/08/21 16:02 Resp 18 08/08/21 16:02 BP 121/74 08/08/21 16:02 Pulse Ox 98 08/08/21 16:02 08/08/21 08/08/21 08/08/21 06:59 14:59 22:59 Intake Total 1050.000 / 4450.000 50 / 1050 1000 / 1050 Output Total 1300 / 3600 825 / 1125 300 / 1125 Balance -250.000 / 850.000 -775 / -75 700 / -75 Physical Exam Narrative: Abdomen: Soft, tender, minimally distended, dressing dry and intact Urinary Catheter Management: Celaya: Cath Placed During This Visit: yes Urinary Catheter Date of Insertion: 08/07/21 Urinary Catheter Time of Insertion: 11:15 Data : 08/08/21 03:40 08/08/21 03:40 A&P Assessment and plan (1) S/P laparoscopic-assisted sigmoidectomy: Patient is overall doing well, pain is reasonably well controlled, good urine output overnight DC Celaya Start clear liquid diet Decrease IV fluids to 30 cc/h Lovenox for DVT prophylaxis Pepcid for GI prophylaxis Patient will need greater than 2 nights of inpatient stay to ensure resolution of ileus and rule out postop complications Status: Acute Attestations Medical Necessity Statement*: Status post sigmoid colectomy requiring continued inpatient stay to ensure resolution of ileus Coding Level of Care Code Acute Curriculum Writer for Chg Fwd Diagnoses S/P laparoscopic-assisted sigmoidectomy Z90.49
[2021-08-08 17:27] LABS: Glucose Point of Care 106 mg/dL (70-110)
[2021-08-08 20:52] LABS: Glucose Point of Care 111 mg/dL (70-110)
[2021-08-09] VITALS (12 sets, daily range): BP systolic 106–166; BP diastolic 57–90; PULSE 54–80; RESP 14–18; TEMP 36.3–37.2; O2SAT 95–99
[2021-08-09] MEDS: morphine 4 mg/mL SDV 1 mL 3 MG IVP ×5 (01:48→17:47)
[2021-08-09 03:37] LABS: Basophils % 0.3 %; Eosinophils # 0.1 10^3/uL (0.0-0.8); Eosinophils % 0.8 %; Hematocrit 41.4 % (37.0-47.0); Hemoglobin 12.1 g/dL (11.5-15.3); Lymphocytes # 2.4 10^3/uL (0.8-4.8); Lymphocytes % 25.3 %; Mean Corpuscular HGB Conc 29.2 g/dL (30.0-36.0); Mean Corpuscular Volume 95.8 fl (81-99); Mean Platelet Volume 10.1 fL (7.4-10.4); Monocytes # 0.8 10^3/uL (0.2-0.9); Monocytes % 8.1 %; Neutrophils # 6.25 10^3/uL (1.8-7.7); Neutrophils % 65.3 %; Nucleated Red Blood Cells % 0 %; Platelet Count 190 10^3/cmm (130-400); Red Blood Count 4.32 10^6/uL (4.1-5.3); Red Cell Distribution Width 13.8 % (12.1-15.1); White Blood Count 9.6 10^3/uL (4.0-10.0)
[2021-08-09 03:58] LABS: Anion Gap 12.9 (5-19); Blood Urea Nitrogen 5 mg/dL (6-20); Calcium 8.7 mg/dL (8.5-10.5); Carbon Dioxide 21 mmol/L (22-29); Chloride 105 mmol/L (98-107); Glomerular Filtration Rate 94.7 mL/min (90-130); Glucose 108 mg/dL (65-115); Osmolality Calculated 278 mOsm/kg (285-295); Potassium 3.9 mmol/L (3.5-5.1); Sodium 135 mmol/L (136-145)
[2021-08-09] MEDS: enoxaparin 40 mg/0.4 mL Syringe SUBCUT (06:15)
[2021-08-09 07:20] LABS: Glucose Point of Care 102 mg/dL (70-110)
--- NOTE | 2021-08-09 08:46 | PC.NURSE ---
Spoke with Dr. Mcdowell via [facility] regarding Zosyn order clarification. Pt to continue to receive Zosyn Q8hrs. Called pharmacy to adjust scheduling.
[2021-08-09] MEDS: famotidine 20 mg/2 mL INJ IVP ×2 (08:49→19:45)
[2021-08-09] MEDS: sennosides-docusate Tablet 1 TAB PO ×2 (08:49→17:10)
--- NOTE | 2021-08-09 09:33 | PM.PN ---
Subjective Subjective: Patient has been doing well, ambulating. Pain is controlled with morphine, denies any nausea, vomiting flatus or BM Medications: Reviewed: Yes Vitals/I&O/Wt Last Vital Signs Temp 98.5 F 08/09/21 07:48 Pulse 54 L 08/09/21 07:48 Resp 14 08/09/21 08:54 BP 115/69 08/09/21 07:48 Pulse Ox 98 08/09/21 07:48 08/08/21 08/09/21 08/09/21 22:59 06:59 14:59 Intake Total 1240 / 1340 50 / 1340 Output Total 550 / 2475 1100 / 2475 Balance 690 / -1135 -1050 / -1135 Physical Exam Narrative: Abdomen: Soft, nondistended, minimally tender, incision clean dry and intact Urinary Catheter Management: Celaya: Cath Placed During This Visit: yes Urinary Catheter Date of Insertion: 08/07/21 Urinary Catheter Time of Insertion: 11:15 Data : 08/09/21 03:30 08/09/21 03:30 A&P Assessment and plan (1) S/P laparoscopic-assisted sigmoidectomy: Patient is overall doing well, pain is reasonably well controlled, good urine output overnight Full liquid diet d/c fluids Lovenox for DVT prophylaxis Pepcid for GI prophylaxis Patient will need greater than 2 nights of inpatient stay to ensure resolution of ileus and rule out postop complications Status: Acute Attestations Medical Necessity Statement*: s/p colectomy requiring inpatient stay to rule out complications and resolution of ileus Coding Level of Care Code Acute Quenching Car Operator for [facility] Fwd Diagnoses S/P laparoscopic-assisted sigmoidectomy Z90.49
[2021-08-09] MEDS: piperacillin-tazobactam 3.375 GM in sodium chloride 0.9% (plus) 50 ML IV ×2 (10:35→17:11)
[2021-08-09] MEDS: HYDROcodone-acetaminophen 5-325 mg Tablet 1 TAB PO ×3 (10:36→22:42)
[2021-08-10] MEDS: piperacillin-tazobactam 3.375 GM in sodium chloride 0.9% (plus) 50 ML IV ×2 (01:30→09:40)
[2021-08-10 04:00] VITALS: BP 116/67; PULSE 60; RESP 16; TEMP 36.7; O2SAT 100
[2021-08-10] MEDS: enoxaparin 40 mg/0.4 mL Syringe SUBCUT (05:09)
[2021-08-10] MEDS: HYDROcodone-acetaminophen 5-325 mg Tablet 1 TAB PO ×2 (05:09→11:12)
[2021-08-10 05:52] LABS: Basophils # 0.1 10^3/uL (0.0-0.1); Basophils % 0.9 %; Eosinophils # 0.3 10^3/uL (0.0-0.8); Eosinophils % 4.2 %; Hematocrit 38.9 % (37.0-47.0); Hemoglobin 12.5 g/dL (11.5-15.3); Lymphocytes # 1.8 10^3/uL (0.8-4.8); Lymphocytes % 28.6 %; Mean Corpuscular HGB Conc 32.1 g/dL (30.0-36.0); Mean Corpuscular Hemoglobin 28.5 pg (28.0-34.0); Mean Corpuscular Volume 88.6 fl (81-99); Monocytes # 0.4 10^3/uL (0.2-0.9); Monocytes % 6.7 %; Neutrophils # 3.75 10^3/uL (1.8-7.7); Neutrophils % 58.4 %; Nucleated Red Blood Cells % 0 %; Platelet Count 173 10^3/cmm (130-400); Red Blood Count 4.39 10^6/uL (4.1-5.3); Red Cell Distribution Width 13.5 % (12.1-15.1); White Blood Count 6.4 10^3/uL (4.0-10.0)
[2021-08-10 05:55] LABS: Slide Review Slide Review Perform
[2021-08-10 06:44] LABS: Anion Gap 15.5 (5-19); Blood Urea Nitrogen 5 mg/dL (6-20); Calcium 8.6 mg/dL (8.5-10.5); Carbon Dioxide 23 mmol/L (22-29); Chloride 103 mmol/L (98-107); Glomerular Filtration Rate 113.1 mL/min (90-130); Glucose 107 mg/dL (65-115); Osmolality Calculated 284 mOsm/kg (285-295); Potassium 3.5 mmol/L (3.5-5.1); Sodium 138 mmol/L (136-145)
[2021-08-10 07:09] VITALS: BP 107/67; PULSE 64; RESP 16; TEMP 36.4; O2SAT 97
[2021-08-10] MEDS: famotidine 20 mg/2 mL INJ IVP (07:31)
--- NOTE | 2021-08-10 08:46 | P.DS_ITS ---
Discharge Providers Date of Admission: 08/07/21 15:33 Date of Discharge: August 10, 2021 Attending Provider at Admission: Logan Mcdowell MD Attending Provider at Discharge: Logan Mcdowell MD Primary Care Provider: Ronda Sparks Diagnoses at Discharge Discharge Diagnosis (1) S/P laparoscopic-assisted sigmoidectomy: Status: Acute Reason for Visit Reason for Visit: recurrent diveriticulitis Brief History: This is a 36-year-old female who was previously hospitalized earlier this year with perforated sigmoid diverticulitis with abscess requiring CT-guided drainage and IV antibiotics. Patient has had multiple episodes of diverticulitis in the past and therefore chose to have elective sigmoid colectomy Hospital Course Hospital Course The patient underwent laparoscopic sigmoid colectomy on 08/07/2021. On 08/10/2019 past she was passing flatus and her diet was advanced to GI soft diet. At time of discharge her vital signs are stable, she was ambulating and pain is well controlled with oral pain medications. Her incisions are clean dry and intact. Physical Exam Urinary Catheter Management: Celaya: Cath Placed During This Visit: yes Urinary Catheter Date of Insertion: 08/07/21 Urinary Catheter Time of Insertion: 11:15 Discharge Data Studies Completed and Pending Pending at discharge Category Date Time Status ES surgery / GI images Routine Exams 08/07/21 10:23 Taken Pathology: Surgical [PTH] Routine Pth 08/07/21 16:22 Received Laboratory Results WBC 6.4 10^3/uL (4.0-10.0) 08/10/21 05:04 RBC 4.39 10^6/uL (4.1-5.3) 08/10/21 05:04 Hgb 12.5 g/dL (11.5-15.3) 08/10/21 05:04 Hct 38.9 % (37.0-47.0) 08/10/21 05:04 MCV 88.6 fl (81-99) D 08/10/21 05:04 MCH 28.5 pg (28.0-34.0) 08/10/21 05:04 MCHC 32.1 g/dL (30.0-36.0) D 08/10/21 05:04 RDW 13.5 % (12.1-15.1) 08/10/21 05:04 Plt Count 173 10^3/cmm (130-400) 08/10/21 05:04 MPV 11.0 fL (7.4-10.4) H 08/10/21 05:04 Neut % (Auto) 58.4 % 08/10/21 05:04 Lymph % (Auto) 28.6 % 08/10/21 05:04 Pickett % (Auto) 6.7 % 08/10/21 05:04 Eos % (Auto) 4.2 % 08/10/21 05:04 Baso % (Auto) 0.9 % 08/10/21 05:04 Neut # (Auto) 3.75 10^3/uL (1.8-7.7) 08/10/21 05:04 Lymph # (Auto) 1.8 10^3/uL (0.8-4.8) 08/10/21 05:04 Pickett # (Auto) 0.4 10^3/uL (0.2-0.9) 08/10/21 05:04 Eos # (Auto) 0.3 10^3/uL (0.0-0.8) 08/10/21 05:04 Baso # (Auto) 0.1 10^3/uL (0.0-0.1) 08/10/21 05:04 Nucleated RBC % (auto) 0 % 08/10/21 05:04 Nucleated RBCs # 0.0 /100WBC 08/10/21 05:04 Sodium 138 mmol/L (136-145) 08/10/21 06:13 Potassium 3.5 mmol/L (3.5-5.1) 08/10/21 06:13 Chloride 103 mmol/L (98-107) 08/10/21 06:13 Carbon Dioxide 23 mmol/L (22-29) 08/10/21 06:13 Anion Gap 15.5 (5-19) 08/10/21 06:13 BUN 5 mg/dL (6-20) L 08/10/21 06:13 Creatinine 0.6 mg/dL (0.5-0.9) 08/10/21 06:13 GFR Calculation 113.1 mL/min (90-130) 08/10/21 06:13 Glucose 107 mg/dL (65-115) 08/10/21 06:13 POC Glucose 102 mg/dL (70-110) 08/09/21 07:00 Calculated Osmolality 284 mOsm/kg (285-295) L 08/10/21 06:13 Calcium 8.6 mg/dL (8.5-10.5) 08/10/21 06:13 Total Bilirubin 0.5 mg/dL (0.15-1.2) 08/07/21 20:13 AST 19 U/L (0-32) 08/07/21 20:13 ALT 18 U/L (0-33) 08/07/21 20:13 Alkaline Phosphatase 65 IU/L (35-105) 08/07/21 20:13 Total Protein 6.6 g/dL (6.6-8.7) 08/07/21 20:13 Albumin 4.0 g/dL (3.5-5.2) 08/07/21 20:13 Globulin 2.6 g/dL (1.3-4.6) 08/07/21 20:13 Vitals Last Vital Signs Temp 97.5 F L 08/10/21 07:09 Pulse 64 08/10/21 07:09 Resp 16 08/10/21 07:09 BP 107/67 08/10/21 07:09 Pulse Ox 97 08/10/21 07:09 Discharge Plan Discharge Patient Disposition: Home Condition: Stable Prescriptions: New hydrocodone-acetaminophen 5-325 mg tablet 1 tab PO Q6H PRN (Reason: pain) Qty: 20 0RF ondansetron HCl 4 mg tablet 4 mg PO Q8H 5 Days Qty: 15 0RF Senna with Docusate Sodium 8.6-50 mg tablet 1 tab-cap PO BID Qty: 30 0RF Continued Excedrin Migraine 250-250-65 mg tablet 2 tab PO Q6H PRN (Reason: Migraine Headache) 0RF ondansetron HCl [Zofran] 4 mg tablet 4 mg PO Q6H PRN (Reason: nausea and vomiting) Qty: 20 0RF sennosides-docusate sodium [Senna with Docusate Sodium] 8.6-50 mg tablet 1 tab-cap PO BID Qty: 30 0RF omeprazole 40 mg capsule,delayed release(DR/EC) 40 mg PO DAILY 56 Days 0RF Discontinued erythromycin 500 mg tablet 500 mg PO ONCE Qty: 3 0RF Rx Instructions: Take 1 tablet at 3PM, 1 tablet at 4PM, and 1 tablet at 10PM the day before surgery. neomycin 500 mg tablet 1 g PO ONCE Qty: 6 0RF Rx Instructions: Take 2 tablets at 3PM, 2 tablets at 4 PM, 2 tablets at 10PM the day before surgery. Discharge Orders: Discharge Order (Routine); Ordered 08/10/21 Ordered By: Logan Mcdowell Referrals: Logan Mcdowell MD [Physician] - 7-10 days (Please call [phone] on Wednesday to set up an appointment with Dr. Mcdowell in the next 10 days. ) Patient Instructions: Hydrocodone/Acetaminophen (By mouth), Ondansetron (By mouth) (Zofran, Zofran ODT, Zuplenz), Senna (By mouth), Colectomy (DC), Opioid Safety, Sigmoidoscopy Activity Restrictions/Additional Instructions: Diet Advance to GI soft low residue diet as tolerated, increase fluid intake as much as possible. Activity Avoid strenuous activity for 2 weeks but continue with daily activities including walking as tolerated. Do not lift more than 10 pounds for 2 weeks Return to work/school You can return to work/ school whenever you feel ready as long as you don?t have to lift more than 10 pounds at work. If you have paperwork that needs to be completed for time off from work, please contact my office Driving You can resume driving once you stop using narcotic pain medications, and transition to non-opioid pain medications like Tylenol, Motrin, Aleve, etc. Medications Pain Take opioid pain medications as prescribed and transition to non-opioid pain medications like Tylenol, Motrin, Aleve etc. over the next few days. The goal of the pain medications is to make the pain bearable and not to be pain free since you recently had surgery. Resume all home medications after surgery as per the medication reconciliation list Nausea Nausea is common after surgery, take nausea medications as needed and stay on a liquid bland diet until nausea resolves. Constipation The combination of surgery, anesthesia and pain medications can result in constipation. Take stool softeners as prescribed. If you do not have a bowel movement in 3 days, please take an [id number] laxative like MiraLAX to address the constipation. Shower It is ok to shower but avoid getting the wound wet for 48 hours after surgery. Do not soak in bathtub, swimming pool or hot tub for 2 weeks. Wound care If glue has been used on your incisions after surgery, the glue on the incision will peel slowly over the next two weeks. The stitches used are dissolvable and will not need to be removed. Do not apply antibiotics or other medications on the incision Problems with the wound: you can develop some redness around the incision from bruising after surgery. If there is increasing pain, redness, tenderness around the incision with or without drainage, please contact my office to rule out an infection. Sometimes the skin at the incisions can separate, resulting in reopening of the wound. Cover the wound with antibiotic cream and sterile dressings and contact my office. Contact physician Call the office at [phone] during office hours or go the Emergency Room ?Fever to 100.4 or greater ?Shaking chills ?Pain that increases over time ?Redness, warmth, or pus draining from incision sites ?Persistent nausea or inability to take in liquids Discharge Attestations Time Spent in Discharge Care*: less than 30 min Quality Metrics Clinical Quality Measures [ No reported AMI, CVA or VTE this stay] Coding Level of Care Code Acute g FW DC note Diagnoses S/P laparoscopic-assisted sigmoidectomy Z90.49
[2021-08-10] MEDS: sennosides-docusate Tablet 1 TAB PO (09:38)
[2021-08-10 11:17] VITALS: BP 152/90; PULSE 61; RESP 17; TEMP 36.7; O2SAT 100
--- NOTE | 2021-08-10 11:48 | PC.NURSE ---
Spoke with Dr. Mcdowell via VO[facility] regarding patient's request for tylenol for breakthrough pain before leaving hospital. Dr. Mcdowell said the patient could receive 650 mg of Tylenol PO.
[2021-08-10 13:40] VITALS: BP 152/90; PULSE 61; RESP 17; TEMP 36.7; O2SAT 100
== END 2021-08-10 13:43 | disposition home or self-care (01) | DRG 331 ==
LOC: MEDSURG 15:33
PROVIDERS: Surgery; Admitting Provider Surgery; PCP Physician Assistant; Visit Provider Surgery
PROC: 0DTN4ZZ Resection of Sigmoid Colon, Percutaneous Endoscopic Approach (ICD-10-PCS; CPT 44204; principal; 2021-08-07 10:05)
PROC: 0DJD8ZZ Inspection of Lower Intestinal Tract, Via Natural or Artificial Opening Endoscopic (ICD-10-PCS; CPT 45330; 2021-08-07 10:05)
DX: K57.32 Diverticulitis of large intestine without perforation or abscess without bleeding (principal); F15.90 Other stimulant use, unspecified, uncomplicated
CPT/HCPCS: 36415; 36416; 51702; 80048; 80053; 82962; 85025; 88309; 94664; 96372; 97161; C9290; J0360; J1100; J1170; J1200; J1650; J2250; J2270; J2405; J2543; J2704; J2710; J3010; J3490; P9041

== ENCOUNTER → 2021-08-19 09:52 | Outpatient (BNVA) | payer MEDICAID, SELFPAY | PROVIDERS: PCP Physician Assistant; Visit Provider Surgery | DX: Z98.890 Other specified postprocedural states (principal); Z90.49 Acquired absence of other specified parts of digestive tract; K29.70 Gastritis, unspecified, without bleeding; B96.81 Helicobacter pylori [H. pylori] as the cause of diseases classified elsewhere | CPT/HCPCS: 99213 ==

== ENCOUNTER → 2021-09-30 08:24 | Outpatient (BNVA) | payer MEDICAID, SELFPAY | PROVIDERS: PCP Physician Assistant; Visit Provider Surgery | DX: Z98.890 Other specified postprocedural states (principal); Z90.49 Acquired absence of other specified parts of digestive tract | CPT/HCPCS: 99024 ==

== ENCOUNTER 2023-11-09 09:19 | Outpatient (CLI) | payer MEDICAID, SELFPAY ==
--- NOTE | 2023-11-09 09:25 | MM_ITS ---
WS: [id number] DIAGNOSTIC BILATERAL DIGITAL BREAST TOMOSYNTHESIS MAMMOGRAPHY WITH CAD RIGHT breast ultrasound, limited HISTORY: R BREAST MASS COMPARISON: Prior breast ultrasound 04/18/2019 TECHNIQUE: Bilateral craniocaudad, mediolateral oblique, and mediolateral views are submitted with to mosynthesis and SM. Spot compression RIGHT MLO and CC. Computer aided detection utilized. Breast composition: There are scattered areas of fibroglandular density. Triangular marker is placed along the medial RIGHT breast. There is no mass identified. There are benign calcifications in each b reast. Benign lymph nodes. RIGHT breast ultrasound, limited Ultrasound is directed to the palpable areas along the 3:00 axis of the RIGHT breast. There is a very subtle hyperechoic area measuring 0.9 x 0.5 x 0.9 cm without increased vascularity. Separate additio nal hyperechoic area measuring 0.7 x 0.4 x 0.8 cm. These are consistent with benign lipomas. MM/[id number] IMPRESSION: BI-RADS: 2-Benign FOLLOW UP: 1 Year Follow-up Palpable areas in the RIGHT breast correspond to benign lipomas.
[2023-11-09 10:07] LABS: Basophils % 0.4 %; Eosinophils # 0.2 10^3/uL (0.0-0.8); Eosinophils % 2.6 %; Hematocrit 43.3 % (36-47); Lymphocytes # 1.5 10^3/uL (0.8-4.8); Lymphocytes % 20.9 %; Mean Corpuscular HGB Conc 32.6 g/dL (30-55); Mean Corpuscular Hemoglobin 29.7 pg (27-33); Mean Corpuscular Volume 91.4 fl (85-98); Mean Platelet Volume 10.6 fL (7.4-10.4); Monocytes # 0.4 10^3/uL (0.2-0.9); Monocytes % 5.8 %; Neutrophils % 69.9 %; Nucleated Red Blood Cells % 0 %; Platelet Count 197 10^3/cmm (157-399); Red Blood Count 4.74 10^6/uL (3.85-5.65); White Blood Count 7.02 10^3/uL (3.29-11.43)
[2023-11-09 10:30] LABS: Estmated Average Glucose 123; Hemoglobin A1C 5.9 % (4.0-6.0)
[2023-11-09 10:43] LABS: Alanine Aminotransferase 32 U/L (0-33); Albumin Level 4.4 g/dL (3.5-5.2); Alkaline Phosphatase 72 U/L (35-105); Anion Gap 16.2 (5-19); Aspartate Amino Transferase 30 U/L (0-32); Blood Urea Nitrogen 8 mg/dL (6-20); Calcium 8.7 mg/dL (8.5-10.5); Carbon Dioxide 20 mmol/L (22-29); Chloride 107 mmol/L (98-107); Chol HDL Ratio 4.86 mg/dL (0.0-4.40); Cholesterol 243 mg/dL (0-200); Globulin 2.5 g/dL (1.3-4.6); Glomerular Filtration Rate 111.9 mL/min (90-130); Glucose 124 mg/dL (65-115); HDL Cholesterol 50 mg/dL (60-100); LDL Cholesterol Calculated 170 mg/dL (50-129); Osmolality Calculated 288 mOsm/kg (285-295); Potassium 4.2 mmol/L (3.5-5.1); Sodium 139 mmol/L (136-145); Total Bilirubin 0.4 mg/dL (0.15-1.2); Total Protein 6.9 g/dL (6.6-8.7); Triglycerides 117 mg/dL (0-150)
== END 2023-11-09 09:20 | disposition home or self-care (01) ==
LOC: RAD 09:20
PROVIDERS: PCP Physician Assistant; Visit Provider Physician Assistant
DX: R73.9 Hyperglycemia, unspecified (principal); N63.10 Unspecified lump in the right breast, unspecified quadrant; R92.323 Mammographic fibroglandular density, bilateral breasts; R92.1 Mammographic calcification found on diagnostic imaging of breast; D17.79 Benign lipomatous neoplasm of other sites
CPT/HCPCS: 36415; 76642; 77062; 80053; 80061; 83036; 85025; G0279